=== PATIENT | female | born 1940 | race Caucasian/White ===

== ENCOUNTER 2023-10-17 10:25 | Observation (INO) ==
[2023-10-17 11:29] LABS: Basophils % (auto) 1.1 %; Eosinophils # (auto) 0.81 K/uL (0.00-0.50); Eosinophils % (auto) 8.7 %; Hematocrit (blood only) 38.3 % (37.0-47.0); Hemoglobin 13.5 g/dl (12.0-16.0); Immature Granulocytes # (auto) 0.04 K/uL (0.01-0.20); Immature Granulocytes % (auto) 0.4 %; Lymphocytes # (auto) 3.15 K/uL (1.20-3.40); Lymphocytes % (auto) 33.9 %; Mean Corpuscular Hemoglobin 32.5 pg (25.0-34.0); Mean Corpuscular Hgb Conc 35.2 g/dL (32.0-36.0); Mean Corpuscular Volume 92.1 fL (80.0-100.0); Mean Platelet Volume 9.8 fL (9.4-12.4); Monocytes # (auto) 0.92 K/uL (0.11-0.59); Monocytes % (auto) 9.9 %; Neutrophils # (auto) 4.26 K/uL (1.40-6.50); Platelet Count 336 K/uL (130-400); RDW Coefficient of Variation 13.1 % (11.5-14.5); RDW Standard Deviation 44.3 fL (36.4-46.3); Red Blood Count 4.16 M/uL (4.20-5.40); White Blood Count 9.28 K/ul (4.8-10.8)
[2023-10-17 11:42] LABS: Albumin Globulin Ratio 1.9 (0.9-2); Albumin Level 4.2 gm/dl (3.4-5.0); BUN Creatinine Ratio 17.1 (10-20); Bilirubin,Total 0.4 mg/dl (0.2-1.0); Calcium 9.8 mg/dl (8.6-10.3); Creatinine Clr Calc Pharmacy 58.8 ml/min; Est GFR (African American) 84.7 ml/min; Est GFR (Non-African American) 73.1 ml/min; Globulin 2.2 gm/dl (2.5-4.0); Potassium 4.3 mmol/L (3.5-5.1); Total Protein 6.4 gm/dl (6.0-8.3)
--- NOTE | 2023-10-17 11:51 | Emergency Department Note ---
Impression & Plan Right leg weakness, Hypertension ED Provider Note NAME: SHAMIKA CASTILLO AGE: 82 SEX: F : 1940 ARRIVES VIA: Walk-In INFORMANT: Patient, ED PROVIDER(S): Jordan Stringer MD CHIEF COMPLAINT: Weakness and numbness in the right leg MEDICAL DECISION MAKING: Patient presents due to concern for weakness and numbness in the right lower extremity. IV was established and blood work was obtained. CT head angiography head and neck and CT lumbar spine ordered. Patient's blood work shows a normal white count normal H&H and platelet count. The patient's kidney function is unremarkable with normal electrolytes. After further discussion with the patient the patient would like to consider going home and while the patient certainly may have a lumbar etiology of the numbness and weakness the patient is at an age where a stroke is also a possibility. Patient's initial CT head is negative but does show microvascular ischemic changes. Chest x-ray negative. 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 Given moderate stenosis believe this to be less likely to cause symptoms. I did speak the on-call hospital service ALEXA Snyder. After further discussion plan will be to admit the patient. Discussion w/ other healthcare providers: ALEXA Snyder and Dr. Telles Prior /Outside records reviewed: I reviewed an operative report from July 17, [address] Pineda. The patient had been seen for right cataracts. Differential diagnosis: Infection, dehydration, metabolic abnormality, hypo/hyperglycemia, electrolyte imbalance, anemia, UTI, pneumonia, thyroid dysfunction among others were considered. Diagnostics, as interpreted by me: ECG: Normal sinus rhythm, rate of 60, normal intervals, normal axis no ST elevations, Q-wave in lead III T wave version in V2. No significant change for comparison September 19, 2018 Cardiac monitoring: An order was placed for continuous cardiac monitoring. The monitor shows a rate of 62 with sinus rhythm. Patient was placed on pulse oximetry Medical decision rules: None Imaging studies: I informally interpreted the patient's CT head which does not show obvious ICH with formal report to follow. I informally interpreted the patient's femur x-ray which does not show obvious fracture or dislocation with formal report to follow. I informally reviewed the patient's chest x-ray which does not show obvious pneumonia or pneumothorax with formal report to follow. HPI: Patient presents due to concern for weakness and numbness of the right leg. The patient states that she had gotten in her car and had noticed some tingling in the back of her bilateral legs. The patient states that she is she was driving to [place] the patient could not feel her right lower extremity. The patient felt as though it was weak as well. The patient got out of her car and was able to bear weight on the leg. Patient states that she checked out this lasted no more than 10 minutes to where she regained feeling. The patient states that at rest she does not seem to have any symptoms but if she were to get up and walk she feels as though it may worsen. Patient denies any prior history of stroke or mini stroke. The patient has had chronic back pain although not acutely worse. PAST MEDICAL HISTORY: See Below PAST SURGICAL HISTORY: See Below SOCIAL HISTORY: See Below HOME MEDICATIONS: See Below ALLERGIES: See Below VITALS: See Below PHYSICAL EXAMINATION: GENERAL: NAD, non-toxic. EYE EXAM: Normal conjunctiva. PERRL, no anisocoria and EOM's grossly intact w/o pain. OROPHARYNX: Moist mucus membranes, grossly normal dentition. NECK: Trachea midline, no stridor. Supple, no nuchal rigidity, no adenopathy, non-tender. No signs of meningismus. FROM of the neck with good chin to chest and neck extension. LUNGS: Clear to auscultation. Normal chest wall mechanics. HEART: NSR, no MRG. ABDOMEN: Abdomen soft, non-tender, no masses, no rebound or guarding. BACK: No CVA TTP. SKIN: No rashes and no bruising. UPPER EXTREMITIES: Upper extremities are grossly normal. LOWER EXTREMITIES: Grossly normal, no edema. NEURO EXAM: A&O x3, cranial nerves II-XII grossly intact, normal speech, moves all 4 extremities. 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 Hypertension Surgical History Hx of left cataract extraction History of colonoscopy History of appendectomy Family History Father Stroke Mother Cancer Social History Smoking Status: Former smoker Tobacco Type: Cigarettes Cigarettes Per Day: 3; Second Hand Exposure: No; Do You Dip or Chew Tobacco: No; Tobacco Cessation Education Requested by Patient: No Hx Alcohol Use: No Hx Substance Use: No Preferred Language: Peruvian Communication Ability: Effective Dispensary Technician Required: No Beliefs That Will Affect Care: None Current Living Situation: Alone Current Living Situation Comment: apartment Other Information That Helps Us Care for You: No Feels Safe at Home: Yes Safety Concerns: Feels Safe At This Time Assistive Devices: None Allergies Allergies Allergy/AdvReac Type Severity Reaction Status Date / Time Sulfa (Sulfonamide Allergy Unknown Rash Verified 07/17/23 10:02 Antibiotics) sulfamethoxazole Allergy Unknown Rash Verified 07/17/23 10:02 [From Bactrim] trimethoprim [From Bactrim] Allergy Unknown Rash Verified 07/17/23 10:02 Home Meds Home Medications Medication Instructions Recorded Confirmed atenolol 50 mg tablet 50 mg PO QAM 09/19/18 10/17/23 triamterene 37.5 1 tab PO QAM 09/19/18 10/17/23 mg-hydrochlorothiazide 25 mg capsule umeclidinium 62.5 mcg-vilanterol 1 puffs inhalation QAM 06/16/19 10/17/23 25 mcg/actuation powdr for inhalation (Anoro Ellipta) albuterol sulfate 90 mcg/actuation 1 puffs inhalation Q6H PRN 09/16/22 10/17/23 aerosol inhaler shortness of breath or wheezing varenicline 0.5 mg (11)-1 mg (42) 1 ea PO UD 10/17/23 10/17/23 tablets in a dose pack Previous Rx's Medication Instructions Recorded inhalational spacing device #1 ea 06/16/19 (Aerochamber Mini) montelukast 10 mg tablet 10 mg PO QPM #90 tabs 06/07/20 Results & Data (ED) Vital Signs Vital Signs - 24 hr 10/17/23 10:36 10/17/23 12:29 Temperature 36.8 C Temperature Source Oral Pulse Rate 63 61 Respiratory Rate 18 Blood Pressure 161/122 H Blood Pressure Mean 135 Blood Pressure Position Sitting Pulse Oximetry 98 Sepsis Recent Fever Within 48 Hours No Sepsis New/Unexplained Change in Mental Status No Sepsis Action Taken by Nursing No Action Required Home Medications Current Medication List: was personally reviewed by me Laboratory Data Attestation: I reviewed the patient's lab results. 10/18/23 06:37 10/18/23 06:37 Lab Results 10/17/23 Range/Units 11:11 WBC 9.28 (4.8-10.8) K/ul RBC 4.16 L (4.20-5.40) M/uL Hgb 13.5 (12.0-16.0) g/dl Hct 38.3 (37.0-47.0) % MCV 92.1 (80.0-100.0) fL MCH 32.5 (25.0-34.0) pg MCHC 35.2 (32.0-36.0) g/dL RDW Std Deviation 44.3 (36.4-46.3) fL RDW Coeff of Renaldo 13.1 (11.5-14.5) % Plt Count 336 (130-400) K/uL MPV 9.8 (9.4-12.4) fL Immature Gran % (Auto) 0.4 % Neut % (Auto) 46.0 % Lymph % (Auto) 33.9 % [place] % (Auto) 9.9 % Eos % (Auto) 8.7 % Baso % (Auto) 1.1 % Neut # (Auto) 4.26 (1.40-6.50) K/uL Lymph # (Auto) 3.15 (1.20-3.40) K/uL Willacy # (Auto) 0.92 H (0.11-0.59) K/uL Eos # (Auto) 0.81 H (0.00-0.50) K/uL Baso # (Auto) 0.10 (0.00-0.20) K/uL Immature Gran # (Auto) 0.04 (0.01-0.20) K/uL PT 10.4 (9.0-12.0) Seconds INR 0.9 (0.9-1.1) APTT 24 (21-31) Seconds PTT Ratio 0.9 Sodium 133 L (136-145) mmol/L Potassium 4.3 (3.5-5.1) mmol/L Chloride 98 (98-107) mmol/L Carbon Dioxide 29 (21-32) mmol/L Anion Gap 6 (3-11) BUN 13 (6-23) mg/dl Creatinine 0.76 (0.6-1.2) mg/dl Est Cr Clr Drug Dosing 58.8 ml/min Est GFR ( Amer) 84.7 ml/min Est GFR (Non-Af Amer) 73.1 ml/min BUN/Creatinine Ratio 17.1 (10-20) Glucose 91 (70-99(Fasting)) mg/dl Calcium 9.8 (8.6-10.3) mg/dl Total Bilirubin 0.4 (0.2-1.0) mg/dl AST 12 L (13-39) U/L ALT 11 (7-52) U/L Alkaline Phosphatase 59 (34-104) U/L Total Protein 6.4 (6.0-8.3) gm/dl Albumin 4.2 (3.4-5.0) gm/dl Globulin 2.2 L (2.5-4.0) gm/dl Albumin/Globulin Ratio 1.9 (0.9-2) Administered Medications Discontinued Medications Atenolol (Atenolol 50 Mg Tablet) [facility] [place] Stop: 11/17/23 08:59 Last Admin: 10/18/23 08:37 Dose: 50 mg Documented By: LORENA Ioversol (Optiray 320 125ml) 116 ml IV ONCE ONE Stop: 10/17/23 12:43 Last Admin: 10/17/23 12:43 Dose: 116 ml Documented By: BRIAN Labetalol HCl (Labetalol Hcl Iv 5 Mg/Ml 20ml) 10 mg IV Q4H PRN PRN Reason: Hypertension Stop: 11/16/23 21:56 Last Admin: 10/18/23 00:49 Dose: 10 mg Documented By: DILEEP Co-signed By: LIZY Montelukast Sodium (Montelukast Sodium 10 Mg Tablet) 10 mg PO QPM [facility] Stop: 11/16/23 20:59 Last Admin: 10/17/23 22:09 Dose: 10 mg Documented By: SOHAM Triamterene/Hydrochlorothiazide (Triamterene/Hctz 37.5/25mg Cap) 1 cap PO QAM [facility] Stop: 11/17/23 08:59 Last Admin: 10/18/23 08:37 Dose: 1 cap Documented By: LORENA Umeclidinium/Vilanterol (Umeclidinium/Vilanterol 62.5/25mcg 7 Puffs/Inhaler) 1 puffs INH QAM [facility] Stop: 11/17/23 08:59 Last Admin: 10/18/23 08:36 Dose: 1 puffs Documented By: LORENA Zolpidem Tartrate (Zolpidem Tartrate 5 Mg Tab) 5 mg PO HS PRN PRN Reason: Sleep Stop: 11/16/23 23:09 Last Admin: 10/18/23 00:54 Dose: 5 mg Documented By: [facility] [place] Data Radiologist's Impression: Chest X-Ray 10/17/23 10:38 XR chest 1V portable HISTORY: leg weakness COMPARISON: Chest 09/19/2018. FINDINGS: The lungs are clear. Cardiac silhouette is top normal in size. No pleural effusions. No pneumothorax. IMPRESSION: No acute process. ACT 112: Negative or not required by law. Electronically signed by: Shade Gibbs M.D. 10/17/2023 12:[address] 10/17/23 12:[address] DOSE: HISTORY: leg weakness/numbness TECHNIQUE: Multiaxial CT images of the head were performed without the use of intravenous contrast. Automated exposure control was utilized for this study. A dose lowering technique was utilized adhering to the principles of ALARA. Comparison: None. Findings: The paranasal sinuses and mastoid air cells are clear. The calvarium and skull base are intact. There is no mass, hematoma, midline shift, acute infarct. White matter hypodensity is nonspecific but suggestive of microvascular ischemic change. The ventricles and sulci demonstrate mild age-related involutional changes. Impression: No acute intracranial abnormality. Atrophy and microvascular ischemic changes. ACT 112: Negative or not required by law. Electronically signed by: Shade Gibbs M.D. 10/17/2023 12:48 PM Head CTA 10/17/23 12:12 HEAD & NECK CTA HISTORY: Right lower extremity weakness/numbness TECHNIQUE: Multiaxial CT images of the head were performed following the intravenous administration of contrast to evaluate the major cerebral vessels. Multiaxial CT images of the neck were also performed following the intravenous administration of contrast to evaluate the major cervical vessels. 3D/MIP images were also obtained. Sagittal and coronal reformats were reviewed. A dose lowering technique was utilized adhering to the principles of ALARA. COMPARISON: None. FINDINGS: There is no mass, hematoma, midline shift, or acute infarct. Visualized intracranial internal carotid arteries, distal right vertebral artery, and basilar artery are widely patent. There is no significant stenosis, occlusion, or aneurysm seen within the bilateral ACAs, MCAs, or teacher education director. Focal mild to moderate stenosis within the distal left vertebral artery on image 30. There is a persistent right posterior circulation. Mild calcified plaque within the bilateral carotid siphons. There is a hypoplastic right A2 segment which is likely developmental.. The major dural venous sinuses are patent. The aortic arch and proximal great vessels are widely patent. There is no significant stenosis, occlusion, or dissection identified within the bilateral common carotid, internal carotid, or vertebral arteries. Scattered peripheral micronodules seen within the upper lobes measuring up to 3 mm. These are indeterminate but favor mild inflammatory/infectious change. A 1 cm left thyroid nodule. This does not meet CT criteria for follow-up. Mild calcified plaque within the bilateral carotid bifurcations. IMPRESSION: 1. No significant stenosis, occlusion, or aneurysm within the [place] of Silva. 2. No significant stenosis, occlusion, or dissection identified within the carotid or cervical vertebral arteries. 3. 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 ACT 112: Negative or not required by law. Electronically signed by: Shade Gibbs M.D. 10/17/2023 12:56 PM Neck CTA 10/17/23 12:12 HEAD & NECK CTA HISTORY: Right lower extremity weakness/numbness TECHNIQUE: Multiaxial CT images of the head were performed following the intravenous administration of contrast to evaluate the major cerebral vessels. Multiaxial CT images of the neck were also performed following the intravenous administration of contrast to evaluate the major cervical vessels. 3D/MIP images were also obtained. Sagittal and coronal reformats were reviewed. A dose lowering technique was utilized adhering to the principles of ALARA. COMPARISON: None. FINDINGS: There is no mass, hematoma, midline shift, or acute infarct. Visualized intracranial internal carotid arteries, distal right vertebral artery, and basilar artery are widely patent. There is no significant stenosis, occlusion, or aneurysm seen within the bilateral ACAs, MCAs, or teacher education director. Focal mild to moderate stenosis within the distal left vertebral artery on image 30. There is a persistent right posterior circulation. Mild calcified plaque within the bilateral carotid siphons. There is a hypoplastic right A2 segment which is likely developmental.. The major dural venous sinuses are patent. The aortic arch and proximal great vessels are widely patent. There is no significant stenosis, occlusion, or dissection identified within the bilateral common carotid, internal carotid, or vertebral arteries. Scattered peripheral micronodules seen within the upper lobes measuring up to 3 mm. These are indeterminate but favor mild inflammatory/infectious change. A 1 cm left thyroid nodule. This does not meet CT criteria for follow-up. Mild calcified plaque within the bilateral carotid bifurcations. IMPRESSION: 1. No significant stenosis, occlusion, or aneurysm within the agdaagux of Silva. 2. No significant stenosis, occlusion, or dissection identified within the carotid or cervical vertebral arteries. 3. 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 ACT 112: Negative or not required by law. Electronically signed by: Shade Gibbs M.D. 10/17/2023 12:56 PM Discharge Plan Visit Data Chief Complaint: Leg Injury/Pain Stated Complaint: PAIN IN RIGHT LEG, NUMBNESS ED Provider: Jordan Stringer Discharge Problem: Right leg weakness, Hypertension Patient Disposition: Admitted As Inpatient Condition: Good Discharge Instructions Interventions: ED Discharge Assessment Last Done: 10/17/23 19:25 Discharge Problem: Hypertension Qualifiers: Hypertension type: unspecified Qualified Code(s): I10 - Essential (primary) hypertension
[2023-10-17 11:53] LABS: INR 0.9 (0.9-1.1); Partial Thromboplastin Ratio 0.9; Partial Thromboplastin Time 24 Seconds (21-31); Prothrombin Time 10.4 Seconds (9.0-12.0)
--- NOTE | 2023-10-17 12:26 | XRay Report ---
XR chest 1V portable HISTORY: leg weakness COMPARISON: Chest 09/19/2018. FINDINGS: The lungs are clear. Cardiac silhouette is top normal in size. No pleural effusions. No pne umothorax. IMPRESSION: No acute process. ACT 112: Negative or not required by law. Electronically signed by: Shade Gibbs M.D. 10/17/2023 12:25 PM
[2023-10-17] MEDS ORDERED: OPTIRAY 320 125ml IV ONE (12:42)
--- NOTE | 2023-10-17 12:51 | CT Scan Report ---
HEAD CT NONCONTRAST CT DOSE: HISTORY: leg weakness/numbness TECHNIQUE: Multiaxial CT images of the head were performed without the use of intravenous contrast. A utomated exposure control was utilized for this study. A dose lowering technique was utilized adheri ng to the principles of ALARA. Comparison: None. Findings: The paranasal sinuses and mastoid air cells are clear. The calvarium and skull base are int act. There is no mass, hematoma, midline shift, acute infarct. White matter hypodensity is nonspecifi c but suggestive of microvascular ischemic change. The ventricles and sulci demonstrate mild age-rela gabriella involutional changes. Impression: No acute intracranial abnormality. Atrophy and microvascular ischemic changes. ACT 112: Negative or not required by law. Electronically signed by: Shade Gibbs M.D. 10/17/2023 12:48 PM
--- NOTE | 2023-10-17 12:58 | CT Scan Report ---
HEAD & NECK CTA HISTORY: Right lower extremity weakness/numbness TECHNIQUE: Multiaxial CT images of the head were performed following the intravenous administration o f contrast to evaluate the major cerebral vessels. Multiaxial CT images of the neck were also perform ed following the intravenous administration of contrast to evaluate the major cervical vessels. 3D/NM P images were also obtained. Sagittal and coronal reformats were reviewed. A dose lowering technique was utilized adhering to the principles of ALARA. COMPARISON: None. FINDINGS: There is no mass, hematoma, midline shift, or acute infarct. Visualized intracranial internal carotid arteries, distal right vertebral artery, and basilar artery are widely patent. There is no significa nt stenosis, occlusion, or aneurysm seen within the bilateral ACAs, MCAs, or babysitter. Focal mild to mode rate stenosis within the distal left vertebral artery on image 30. There is a persistent right resaw carriage operator ior circulation. Mild calcified plaque within the bilateral carotid siphons. There is a hypopla stic right A2 segment which is likely developmental.. The major dural venous sinuses are patent. The aortic arch and proximal great vessels are widely patent. There is no significant stenosis, occ lusion, or dissection identified within the bilateral common carotid, internal carotid, or vertebral arteries. Scattered peripheral micronodules seen within the upper lobes measuring up to 3 mm. These a re indeterminate but favor mild inflammatory/infectious change. A 1 cm left thyroid nodule. This does not meet CT criteria for follow-up. Mild calcified plaque within the bilateral carotid bifurcations. IMPRESSION: 1. No significant stenosis, occlusion, or aneurysm within the [place] of Silva. 2. No significant stenosis, occlusion, or dissection identified within the carotid or cervical verteb ral arteries. 3. 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 ACT 112: Negative or not required by law. Electronically signed by: Shade Gibbs M.D. 10/17/2023 12:56 PM
--- NOTE | 2023-10-17 12:58 | CT Scan Report ---
HEAD & NECK CTA HISTORY: Right lower extremity weakness/numbness TECHNIQUE: Multiaxial CT images of the head were performed following the intravenous administration o f contrast to evaluate the major cerebral vessels. Multiaxial CT images of the neck were also perform ed following the intravenous administration of contrast to evaluate the major cervical vessels. 3D/UT P images were also obtained. Sagittal and coronal reformats were reviewed. A dose lowering technique was utilized adhering to the principles of ALARA. COMPARISON: None. FINDINGS: There is no mass, hematoma, midline shift, or acute infarct. Visualized intracranial internal carotid arteries, distal right vertebral artery, and basilar artery are widely patent. There is no significa nt stenosis, occlusion, or aneurysm seen within the bilateral ACAs, MCAs, or mottler machine feeder. Focal mild to mode rate stenosis within the distal left vertebral artery on image 30. There is a persistent right weekend caregiver ior circulation. Mild calcified plaque within the bilateral carotid siphons. There is a hypopla stic right A2 segment which is likely developmental.. The major dural venous sinuses are patent. The aortic arch and proximal great vessels are widely patent. There is no significant stenosis, occ lusion, or dissection identified within the bilateral common carotid, internal carotid, or vertebral arteries. Scattered peripheral micronodules seen within the upper lobes measuring up to 3 mm. These a re indeterminate but favor mild inflammatory/infectious change. A 1 cm left thyroid nodule. This does not meet CT criteria for follow-up. Mild calcified plaque within the bilateral carotid bifurcations. IMPRESSION: 1. No significant stenosis, occlusion, or aneurysm within the [place] of Silva. 2. No significant stenosis, occlusion, or dissection identified within the carotid or cervical verteb ral arteries. 3. 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 ACT 112: Negative or not required by law. Electronically signed by: Shade Gibbs M.D. 10/17/2023 12:56 PM
--- NOTE | 2023-10-17 13:35 | CT Scan Report ---
CT SCAN OF THE LUMBAR SPINE WITHOUT IV CONTRAST CLINICAL HISTORY: Lower extremity weakness and numbness. COMPARISON STUDY: No priors. TECHNIQUE: CT scan of the lumbar spine was performed from the lower thoracic spine to the sacrum. Ni ges are reviewed in the axial, sagittal, and coronal planes. IV contrast was not administered for thi s examination. A dose lowering technique was utilized adhering to the principles of ALARA. FINDINGS: The skeletal structures are osteopenic. There is no evidence of fracture or malalignment in volving the lumbar spine. Vertebral body height and alignment are maintained. Anterior and lateral ma rginal osteophytes are seen throughout. The transverse and spinous processes appear intact. There is no spondylolysis. No lytic or blastic lesion is seen. There is mlat-gx-liojbtxs disc space narrowing at all lumbar levels, greatest at L4-L5. There is significant endplate sclerosis at L3-L4, L4-L5, and L5-S1. Posterior disc osteophyte complexes are seen at all lumbar levels. There is mild to moderate central canal stenosis at L4-L5. Mild central canal stenosis is seen at L5-S1. There is a left latera l disc extrusion at L4-L5 which contributes to subarticular stenosis and impinges on the exiting left L4 nerve root. Large lateral disc bulges are seen bilaterally at L5-S1, left greater than right. Thi s may impinge on the exiting left L5 nerve root. Facet arthropathy is noted in the lower lumbar regio n. The visualized sacrum and bony pelvis appear intact. The paraspinous soft tissues are within shahzad l limits. There is advanced atherosclerotic calcification of the abdominal aorta which is normal in c aliber. No retroperitoneal lymphadenopathy is identified. IMPRESSION: 1. No acute bony abnormality is seen involving the lumbar spine. 2. Spondylotic change as above. ACT 112: Negative or not required by law. Dictated: 10/17/2023 1:16 PM Transcribed: 10/17/2023 1:30 PM King [id number] ELIEZER_Ariel [id number] Electronically signed by: Vitaliy Rai M.D. 10/17/2023 1:33 PM
--- NOTE | 2023-10-17 15:15 | Electrocardiogram Report ---
Test Reason : Blood Pressure : / mmHG Vent. Rate : 060 BPM Atrial Rate : 060 BPM P-R Int : 186 ms QRS Dur : 082 ms QT Int : 468 ms P-R-T Axes : 046 -03 076 degrees QTc Int : 468 ms Normal sinus rhythm Low voltage QRS Inferior infarct , age undetermined Poor R wave progression, consider anterior TX vs. lead placement vs. LVH Abnormal ECG When compared with ECG of 19-SEP-2018 12:31, No significant change was found Confirmed by Christopher Simon ([id number]) on 10/17/2023 3:15:22 PM Referred By: Confirmed By:Christopher Simon
--- NOTE | 2023-10-17 15:42 | History & Physical Report ---
Date of Service October 17, 2023 Assessment & Plan (1) Right leg weakness: Plan: Admit to telemetry Patient presenting from home with reports of right leg weakness, numbness. Over the past 2 weeks, patient reports numbness and tingling going down the backs of both of her legs and also right hip pain while walking up an incline. Today while driving, patient had an episode of right leg weakness and numbness that lasted for about 10 minutes and self resolved. In the ED, head CT unremarkable, head/neck CTA shows Mild to moderate focal stenosis within the distal left intracranial vertebral artery. Suspect symptoms are due to lumbar radiculopathy however will observe and obtain brain MRI Chronic appearing lumbar spine disease noted on lumbar spine CT, will obtain lumbar spine MRI for follow-up Consider echo and addition of ASA and statin pending brain MRI results (2) Hypertension: Plan: BP elevated, likely situational Will monitor for now until brain MRI results Continue home dose atenolol and triamterene/HCTZ (3) History of tobacco use: Plan: Started Chantix about 2 weeks ago and has been tobacco free (4) Asthma-COPD overlap syndrome: Plan: Chronic, stable, no signs of acute exacerbation Continue home inhalers DVT PROPHYLAXIS SCDs for now Patient seen in collaboration with Dr. Telles. I spent a total of 75 minutes coordinating, documenting, and providing care for this patient excluding time spent in the performance of separately billed services. This included personally reviewing all current laboratories and imaging studies, medication reconciliation, outpatient chart review, and discussion with specialists. History of Present Illness Chief Complaint: Right leg weakness Primary Care Provider: Temitope Smyth PA-C 82-year-old female with PMH COPD, asthma, HTN, tobacco abuse, and other problems listed below who presents to the ED for evaluation of right leg weakness. History is obtained from the patient and review of outpatient PCP records. Patient reports that over the past couple weeks, she has noted tingling down the back of both of her legs. She also reports right hip pain with walking up an incline. Today while driving, patient reports her entire right leg went numb and she was unable to move it. Patient reports she pulled over to the side of the road and was able to shake her leg. She reports that feeling returned about 10 minutes. Patient denies bowel and bladder dysfunction. Denies specific back pain. No recent injuries. She denies any other unilateral weakness, numbness, tingling. No facial droop or difficulty speaking. Denies headache and blurred vision. No chest pain or shortness of breath. Denies lightheadedness, dizziness, diaphoresis, syncopal events. No abdominal pain, nausea, vomiting, diarrhea. Denies urinary symptoms. In the ED, labs are unremarkable. Patient is mildly hypertensive. Head CT negative for acute findings. Head/neck CTA shows mild to moderate focal stenosis within the distal left intracranial vertebral artery. Allergies Allergy/AdvReac Type Severity Reaction Status Date / Time Sulfa (Sulfonamide Allergy Unknown Rash Verified 07/17/23 10:02 Antibiotics) sulfamethoxazole Allergy Unknown Rash Verified 07/17/23 10:02 [From Bactrim] trimethoprim [From Bactrim] Allergy Unknown Rash Verified 07/17/23 10:02 Home Medications Medication Instructions Recorded Confirmed Type atenolol 50 mg tablet 50 mg PO QAM 09/19/18 10/17/23 History triamterene 37.5 1 tab PO QAM 09/19/18 10/17/23 History mg-hydrochlorothiazide 25 mg capsule inhalational spacing device #1 ea 06/16/19 10/17/23 Rx (Aerochamber Mini) umeclidinium 62.5 mcg-vilanterol 1 puffs inhalation QAM 06/16/19 10/17/23 History 25 mcg/actuation powdr for inhalation (Anoro Ellipta) montelukast 10 mg tablet 10 mg PO QPM #90 tabs 06/07/20 10/17/23 Rx albuterol sulfate 90 mcg/actuation 1 puffs inhalation Q6H PRN 09/16/22 10/17/23 History aerosol inhaler shortness of breath or wheezing varenicline 0.5 mg (11)-1 mg (42) 1 ea PO UD 10/17/23 10/17/23 History tablets in a dose pack Past Med/Surg History Medical History History of tobacco use 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 Hypertension Surgical History Hx of left cataract extraction History of colonoscopy History of appendectomy Family History Father Stroke Mother Cancer Social History Smoking Status: Never smoker Tobacco Type: Cigarettes Cigarettes Per Day: 3; Second Hand Exposure: No; Do You Dip or Chew Tobacco: No; Hx Alcohol Use: Yes Alcohol type: beer Hx Substance Use: No Preferred Language: Indonesian Communication Ability: Effective Security Support Analyst Required: No Beliefs That Will Affect Care: None Current Living Situation: Alone Feels Safe at Home: Yes Assistive Devices: Denture - Upper, Denture - Lower and Glasses Physical Exam Constitutional: WD/WN, vitals as above no acute distress Eyes: PERRL, conjunctivae normal, anicteric sclerae ENMT: external ear and nose normal, oropharynx normal Respiratory: normal respiratory effort, lungs clear to auscultation Cardiovascular: Rate/Rhythm: regular rate and regular rhythm Vessels: normal peripheral pulses Extremities: no edema Gastrointestinal (Abdomen): normal bowel sounds, soft, nontender, no hepatosp lenomegaly Musculoskeletal: no cyanosis or clubbing, extremities motor strength 5/5 Skin: no rashes, warm and dry Neurologic: PERRL, EOMI, accommodation nl, no face palsy, no dysarthria moves all extremities; no focal motor deficits Psychiatric: A+Ox3, euthymic affect Results & Data Results & Data Vital Signs (Past 12 Hours) Vital Signs Temp Pulse Resp BP Pulse Ox 10/17/23 14:37 192/81 H 10/17/23 14:37 59 L 22 97 10/17/23 14:30 62 18 98 10/17/23 14:00 58 L 23 99 10/17/23 13:30 60 20 97 10/17/23 13:00 94 H 15 94 10/17/23 12:46 93 H 58 H 10/17/23 12:29 61 10/17/23 12:24 59 L 15 97 10/17/23 10:36 36.8 C 63 18 161/122 H 98 Laboratory Results Short CBC 10/17/23 Range/Units 11:11 WBC 9.28 (4.8-10.8) K/ul Hgb 13.5 (12.0-16.0) g/dl Hct 38.3 (37.0-47.0) % Plt Count 336 (130-400) K/uL BMP 10/17/23 11:11 Sodium 133 L Potassium 4.3 Chloride 98 Carbon Dioxide 29 BUN 13 Creatinine 0.76 Glucose 91 Calcium 9.8 Liver Function 10/17/23 Range/Units 11:11 Total Bilirubin 0.4 (0.2-1.0) mg/dl AST 12 L (13-39) U/L ALT 11 (7-52) U/L Alkaline Phosphatase 59 (34-104) U/L Albumin 4.2 (3.4-5.0) gm/dl Diagnostic Findings Chest X-Ray 10/17/23 10:38 XR chest 1V portable HISTORY: leg weakness COMPARISON: Chest 09/19/2018. FINDINGS: The lungs are clear. Cardiac silhouette is top normal in size. No pleural effusions. No pneumothorax. IMPRESSION: No acute process. ACT 112: Negative or not required by law. Electronically signed by: Shade Gibbs M.D. 10/17/2023 12:[address] 10/17/23 12:[address] DOSE: HISTORY: leg weakness/numbness TECHNIQUE: Multiaxial CT images of the head were performed without the use of intravenous contrast. Automated exposure control was utilized for this study. A dose lowering technique was utilized adhering to the principles of ALARA. Comparison: None. Findings: The paranasal sinuses and mastoid air cells are clear. The calvarium and skull base are intact. There is no mass, hematoma, midline shift, acute infarct. White matter hypodensity is nonspecific but suggestive of microvascular ischemic change. The ventricles and sulci demonstrate mild age-related involutional changes. Impression: No acute intracranial abnormality. Atrophy and microvascular ischemic changes. ACT 112: Negative or not required by law. Electronically signed by: Shade Gibbs M.D. 10/17/2023 12:[address] 10/17/23 12:11 CT SCAN OF THE LUMBAR SPINE WITHOUT IV CONTRAST CLINICAL HISTORY: Lower extremity weakness and numbness. COMPARISON STUDY: No priors. TECHNIQUE: CT scan of the lumbar spine was performed from the lower thoracic spine to the sacrum. Images are reviewed in the axial, sagittal, and coronal planes. IV contrast was not administered for this examination. A dose lowering technique was utilized adhering to the principles of ALARA. FINDINGS: The skeletal structures are osteopenic. There is no evidence of fract ure or malalignment involving the lumbar spine. Vertebral body height and alignment are maintained. Anterior and lateral marginal osteophytes are seen throughout. The transverse and spinous processes appear intact. There is no spondylolysis. No lytic or blastic lesion is seen. There is aynl-jk-jwvhqeqz disc space narrowing at all lumbar levels, greatest at L4-L5. There is significant endplate sclerosis at L3-L4, L4-L5, and L5-S1. Posterior disc osteophyte complexes are seen at all lumbar levels. There is mild to moderate central canal stenosis at L4-L5. Mild central canal stenosis is seen at L5-S1. There is a left lateral disc extrusion at L4-L5 which contributes to subarticular stenosis and impinges on the exiting left L4 nerve root. Large lateral disc bulges are seen bilaterally at L5-S1, left greater than right. This may impinge on the exiting left L5 nerve root. Facet arthropathy is noted in the lower lumbar region. The visualized sacrum and bony pelvis appear intact. The paraspinous soft tissues are within normal limits. There is advanced atherosclerotic calcification of the abdominal aorta which is normal in caliber. No retroperitoneal lymphadenopathy is identified. IMPRESSION: 1. No acute bony abnormality is seen involving the lumbar spine. 2. Spondylotic change as above. ACT 112: Negative or not required by law. Dictated: 10/17/2023 1:16 PM Transcribed: 10/17/2023 1:30 PM King [id number] ELIEZER_Ariel [id number] Electronically signed by: Vitaliy Rai M.D. 10/17/2023 1:33 PM Head CTA 10/17/23 12:12 HEAD & NECK CTA HISTORY: Right lower extremity weakness/numbness TECHNIQUE: Multiaxial CT images of the head were performed following the intravenous administration of contrast to evaluate the major cerebral vessels. Multiaxial CT images of the neck were also performed following the intravenous administration of contrast to evaluate the major cervical vessels. 3D/MIP images were also obtained. Sagittal and coronal reformats were reviewed. A dose lowering technique was utilized adhering to the principles of ALARA. COMPARISON: None. FINDINGS: There is no mass, hematoma, midline shift, or acute infarct. Visualized intracranial internal carotid arteries, distal right vertebral artery, and basilar artery are widely patent. There is no significant stenosis, occlusion, or aneurysm seen within the bilateral ACAs, MCAs, or straightening press operator. Focal mild to moderate stenosis within the distal left vertebral artery on image 30. There is a persistent right posterior circulation. Mild calcified plaque within the bilateral carotid siphons. There is a hypoplastic right A2 segment which is likely developmental.. The major dural venous sinuses are patent. The aortic arch and proximal great vessels are widely patent. There is no significant stenosis, occlusion, or dissection identified within the bilateral common carotid, internal carotid, or vertebral arteries. Scattered peripheral micronodules seen within the upper lobes measuring up to 3 mm. These are indeterminate but favor mild inflammatory/infectious change. A 1 cm left thyroid nodule. This does not meet CT criteria for follow-up. Mild calcified plaque within the bilateral carotid bifurcations. IMPRESSION: 1. No significant stenosis, occlusion, or aneurysm within the [place]. 2. No significant stenosis, occlusion, or dissection identified within the carotid or cervical vertebral arteries. 3. 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 ACT 112: Negative or not required by law. Electronically signed by: Shade Gibbs M.D. 10/17/2023 12:56 PM Neck CTA 10/17/23 12:12 HEAD & NECK CTA HISTORY: Right lower extremity weakness/numbness TECHNIQUE: Multiaxial CT images of the head were performed following the intravenous administration of contrast to evaluate the major cerebral vessels. Multiaxial CT images of the neck were also performed following the intravenous administration of contrast to evaluate the major cervical vessels. 3D/MIP images were also obtained. Sagittal and coronal reformats were reviewed. A dose lowering technique was utilized adhering to the principles of ALARA. COMPARISON: None. FINDINGS: There is no mass, hematoma, midline shift, or acute infarct. Visualized intracranial internal carotid arteries, distal right vertebral artery, and basilar artery are widely patent. There is no significant stenosis, occlusion, or aneurysm seen within the bilateral ACAs, MCAs, or straightening press operator. Focal mild to moderate stenosis within the distal left vertebral artery on image 30. There is a persistent right posterior circulation. Mild calcified plaque within the bilateral carotid siphons. There is a hypoplastic right A2 segment which is likely developmental.. The major dural venous sinuses are patent. The aortic arch and proximal great vessels are widely patent. There is no significant stenosis, occlusion, or dissection identified within the bilateral common carotid, internal carotid, or vertebral arteries. Scattered peripheral micronodules seen within the upper lobes measuring up to 3 mm. These are indeter minate but favor mild inflammatory/infectious change. A 1 cm left thyroid nodule. This does not meet CT criteria for follow-up. Mild calcified plaque within the bilateral carotid bifurcations. IMPRESSION: 1. No significant stenosis, occlusion, or aneurysm within the [place]. 2. No significant stenosis, occlusion, or dissection identified within the carotid or cervical vertebral arteries. 3. 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 ACT 112: Negative or not required by law. Electronically signed by: Shade Gibbs M.D. 10/17/2023 12:56 PM Supervising Physician Co-Signing Physician Notes Reviewed REGISTERED RESPIRATORY TECHNICIAN notes, agree with above. Await MRI at this time. Will get PT OT evaluation. Discussed with daughter who is at bedside about plan of care.I spent a total of 25 minutes reviewing notes, outpatient records, labs, medication, coordinating, documenting and providing care for this patient excluding time spent in the performance of separately billed services.
[2023-10-17] MEDS ORDERED: PHARMACIST DISCHARGE MED REC CONSULT PRN (19:26)
[2023-10-17] MEDS ORDERED: ACETAMINOPHEN 325 MG TAB PO PRN (19:26)
--- NOTE | 2023-10-17 19:52 | Magnetic Resonance Report ---
LUMBAR SPINE MRI HISTORY: right leg weakness TECHNIQUE: Multiplanar multisequence MRI of the lumbar spine was performed without the use of contras t. COMPARISON: None. FINDINGS: For the purpose of the report the L5-S1 disc space will be located on axial image 27 of 30. No fracture or subluxation within the lumbar spine. There is mild disc space narrowing at L2-L3, L3-L 4, and L5-S1. There is moderate disc space narrowing at L4-L5. Sdcy-yx-zcwmgxzy facet degenerative ch anges within the lumbar spine most pronounced at the L4-L5 level. Mild paravertebral edema at the L5- S1 level. There is mild endplate edema at L3-L4, L4-5, and L5-S1. There is associated T1 hypointense signal at the inferior endplate of L5. These findings are most likely secondary to the long-standing degenerative change. An early discitis/osteomyelitis at L5-S1 is considered less likely but not entir wilber excluded. No epidural fluid collections identified. The conus terminates at the T12-L1 disc space level. L1-L2: Small broad-based posterior disc bulge without significant central canal or neural foraminal n arrowing. L2-L3: Small broad-based posterior disc bulge with ligamentum and facet hypertrophy resulting in mild central canal narrowing. No significant neural foraminal narrowing. L3-L4: Small broad-based posterior disc bulge with ligamentum and facet hypertrophy resulting in mild central canal and mild bilateral neural foraminal narrowing. L4-L5: Broad-based posterior disc bulge with ligamentum and facet hypertrophy resulting in moderate t o severe central canal narrowing with an AP diameter of 6.5 mm. There is also mild to moderate bilate ral neural foraminal narrowing. There is severe narrowing of the lateral recesses at this level due t o the disc bulge and facet hypertrophy. L5-S1: Broad-based posterior disc bulge with mild ligamentum and facet hypertrophy. This results in m ild central canal and moderate bilateral neural foraminal narrowing. There is severe narrowing of the left lateral recess. IMPRESSION: 1. No fracture or subluxation within the lumbar spine. 2. Multilevel lumbar spondylosis as described above most pronounced at the L4-L5 level which demonstr ates moderate to severe central canal narrowing. 3. Mild paravertebral edema at the L5-S1 level. There is mild endplate edema at L3-L4, L4-5, and L5-S 1. There is associated T1 hypointense signal at the inferior endplate of L5. These findings are most likely secondary to the long-standing degenerative change. An early discitis/osteomyelitis at L5-S1 i s considered less likely but not entirely excluded. ACT 112: Negative or not required by law. Electronically signed by: Shade Gibbs M.D. 10/17/2023 7:50 PM
--- NOTE | 2023-10-17 19:59 | Magnetic Resonance Report ---
Brain MRI WITHOUT CONTRAST HISTORY: right leg weakness TECHNIQUE: Multiplanar multisequence MRI of the brain was performed without the use of contrast. COMPARISON STUDY: Head CT 10/17/2023. FINDINGS: There is no mass, hematoma, midline shift, or acute infarct. The paranasal sinuses are luis r. The mastoid air cells are clear. The ventricles and sulci demonstrate moderate age-related involut ional changes. Scattered foci of T2 hyperintensity seen within the periventricular and subcortical wh ite matter are nonspecific but suggestive of moderate microvascular ischemic changes. The major vascu lar flow voids at the skull base are well-maintained. Prior bilateral lens replacement. IMPRESSION: No acute intracranial abnormality. Scattered foci of T2 hyperintensity seen within the periventricula r and subcortical white matter are nonspecific but favor microvascular ischemic change. ACT 112: Negative or not required by law. Electronically signed by: Shade Gibbs M.D. 10/17/2023 7:56 PM
--- OUTSIDE RECORDS SUMMARY | 2023-10-17 20:33 | External Medical Summary | Summary of Care ---
Author Name Unknown Organization [facility] Address [address] [place] [address] Phone [phone] Care Team Providers Care Sales Associate Cashier Name Role Phone Marilyn RIVAS MD, Asuncion Celeste Primary Care Provider [phone] Reason for Visit * Reason Comments eRx-Medication Refill Encounter Details Date Type Department Care Team (Late st Contact Info) Description 07/10/[address] [facility] [address] [place] [address] Asuncion Schneider III, MD [address] [facility] [place] [address] COPD, severity to be determined (HCC) Allergies Active Allergy Reactions Criticality Noted Date Comments Sulfa Antibiotics 04/03/2013 Generalized uticaria. documented as of this encounter (statuses as of 07/27/2023) Medications Medication Sig Dispensed Refills Start Date End Date Status predniSONE 20 MG Oral Tablet (Deltasone) Take 2 Tablets by mouth in the morning. Rescue kit. 10 Tablet 2 01/10/2023 Active Azithromycin 250 MG Oral Tablet (Zithromax) TAKE 2 TABLETS BY MOUTH TODAY, THEN TAKE 1 TABLET DAILY FOR 4 DAYS 6 Tablet 0 01/10/2023 Active Albuterol Sulfate HFA 108 (90 Base) MCG/ACT Inhalation Aerosol Solution Inhale 2 Puffs by mouth every 6 hours as needed for Shortness of Breath or Wheezing. 18 g 3 01/10/2023 Active Atenolol 50 MG Oral Tablet (Tenormin)Indicati ons:HTN, goal below 140/90 TAKE 1 TABLET BY MOUTH EVERY DAY IN THE MORNING 90 Tablet 1 05/07/2023 Active Triamterene-HCTZ 37.5-25 MG Oral Capsule (Dyazide)Indicatio ns:HTN, goal below 140/90 TAKE 1 CAPSULE BY MOUTH EVERY DAY IN THE MORNING 90 Capsule 1 05/07/2023 Active Anoro Ellipta 62.5-25 MCG/ACT Inhalation Aerosol Powder Breath Activated (umeclidinium-micheline nterol) INHALE 1 PUFF BY MOUTH EVERY DAY 180 Each 3 05/14/2023 Active Montelukast Sodium 10 MG Oral Tablet (Singulair)Indicat ions:Unspecified asthma, uncomplicated TAKE 1 TABLET BY MOUTH EVERY DAY IN THE EVENING 90 Tablet 3 05/29/2023 Active Benzonatate 100 MG Oral Capsule (Tessalon Perles) Take 1 Capsule by mouth 3 times a day as needed for Cough. 30 Capsule 1 06/22/2023 Active Ipratropium-Albute rol 0.5-2.5 (3) MG/3ML Inhalation Solution (Duoneb)Indication s:COPD, severity to be determined (HCC) INHALE 3 ML VIA NEBULIZER 4 TIMES A DAY 360 mL 3 07/11/2023 Active Varenicline Tartrate (Starter) 0.5 MG X 11 & 1 MG X 42 Tablet Therapy Pack As directed 1 Each 0 07/20/2023 Active Ipratropium-Albute rol 0.5-2.5 (3) MG/3ML Inhalation Solution (Duoneb)Indication s:COPD, severity to be determined (HCC) INHALE 3 ML VIA NEBULIZER 4 TIMES A DAY 360 mL 3 11/09/2022 3 Discontinued Hospital, Clinic, or Other Facility Administered Medication Ordered Dose Route Frequency Start Date End Date Status albuterol (PROVENTIL HFA) inhaler 4 PuffIndications:Chronic obstructive pulmonary disease, unspecified COPD type (HCC) 4 Puff IN Q4H PRN 10/04/2018 Active albuterol sulfate (PROVENTIL) (2.5 MG/3ML) 0.083% inhalation solution 2.5 mgIndications:COPD exacerbation (HCC) 2.5 mg NEBULIZER Q4H PRN 05/09/2019 Active documented as of this encounter (statuses as of 07/27/2023) Active Problems Problem Noted Date Diagnosed Date COPD, group C, by GOLD 2017 classification 05/25 Overview: Per COPD GOLD Classification Chronic bronchitis 10/01/2019 Moderate persistent asthma with exacerbation HTN, goal below 140/90 02/21/2007 ADVANCE DIRECTIVE INFORMATION 08/14/2005 Overview: Yes, Patient instructed to provide copy of advance directive for provider to review and to be scanned into Electronic Medical Record documented as of this encounter (statuses as of 07/27/2023) Resolved Problems Problem Noted Date Diagnosed Date Resolved Date Current moderate episode of major depressive disorder without prior episode 03/24/2021 COPD, group B, by GOLD 2017 classification 10/01/2019 05/27/2020 Overview: Per COPD GOLD Classification COPD, group C, by GOLD 2017 classification 06/30/2019 01/29/2020 Overview: Per COPD GOLD Classification COPD, mild 11/18/2018 06/03/2019 COPD exacerbation 09/25/2018 08/28/2019 Overview: acute documented as of this encounter (statuses as of 07/27/2023) Immunizations Name Administration Dates Next Due COVID-19 mRNA, LNP-s, No Pre serve, 2-Dose Series ([facility]) 11/10/2020,10/20/2020 Covid-19, Mrna, Lnp-s, Pf, B ivalent, 30 Mcg, IM, 12 yrs and above ([place]) 06/05/2022 Pneumococcal Conjugate Vacc, 13 Valent (Prevnar) 08/20/2015 Pneumococcal Polysaccharide PPV23 (Pneumovax) 07/16/2006 SEASONAL INFLUENZA, PF, 6 M & Above, IM , (FLULAVAL or FLUZONE) 05/30/2020,05/28/2019,06/13/2018 Seasonal Influenza, Quadriva lent Hd (Fluzone Hd) 05/26/2021 Seasonal Influenza, Quadriva lent, No Preserve, IM 05/24/2017,06/14/2016 Seasonal Influenza, Split, I IV3, With Preserve, Inj 06/09/2014,06/07/2013,06/18/2012,06/13,07/06/2010,07/20/2009 Seasonal Influenza, Trivalen t, High Dose, No Preserve, IM 06/07/2015 TDAP (age 10 and older)(Boostrix) 04/16/2013 Varicella Zoster Vaccine (Adult) 10/14/2008 Zoster Vaccine Recombinant (Shingrix) 05/26/2019 ,03/18/2019 documented as of this encounter Social History Tobacco Use Types Packs/Day Years Used Date Smoking Tobacco: Every Day Cigarettes 0.3 50 Last attempted to quit: 10/17/2018 Smokeless Tobacco: Never Alcohol Use Standard Drinks/Week Comments Yes 0 (1 standard drink = 0.6 oz pur e alcohol) 8 beers per week PHQ-2 Answer Date Recorded PHQ-2 Score 0 07/12/2020 Hunger Vital Sign Answer Date Recorded Worried About Running Out of Food in the Last Ye ar Never true 07/12/2020 Ran Out of Food in the Last Year Never true 07/12/2020 Sex and Gender Information Value Date Recorded Sex Assigned at Not on file Gender Identity Not on file Sexual Orientation Not on file Job Start Date Occupation Industry Not on file Not on file Not on file documented as of this encounter Miscellaneous Notes * Telephone Encounter - Scarlett Curran CPhT - 07/27/2023 8:36 AM EST Pt is calling regarding her Ipratropium-Albuterol 0.5-2.5 (3) MG/3ML Inhalation Solution (Duoneb). PC to pharmacy to find out what they have in stock as an alternative and [facility] stated the only alternative they have right now is the Ipratropium and Albuterol . Please advise Thank you, Zakia Curran Matching Machine Operator I [facility]) 07/27/2023,8:41 AM * Addendum Note - Asuncion Schneider III, MD - 07/20/2023 4:20 PM EDTAddended by: ASUNCION SCHNEIDER on: 07/20/2023 04:20 PM Modules accepted: Orders * Telephone Encounter - Asuncion Schneider III, MD - 07/20/2023 4:18 PM EDT [facility] ? Alternative? * Telephone Encounter - Aishwarya Dias OSA - 07/19/2023 1:15 PM EDT Patient called because [facility] contacted her and they are not carrying this brand anymore and need to speak to PCP for an alternative. Please contact [facility]. * Telephone Encounter - Kristel Gautam RP - 07/11/2023 7:16 AM EDTSigned Prescriptions: Disp Refills Ipratropium-Albuterol 0.5-2.5 (3) MG/3ML I*360 mL 3 Sig: INHALE 3 ML VIA NEBULIZER 4 TIMES A DAYAuthorizing Provider: ASUNCION SCHNEIDER III User: KRISTEL GAUTAMRefmandie Prescriptions: Disp Refills Varenicline Tartrate (Starter) 0.5 MG X 11*1 Each 0 Sig: USE DIRECTED ON THE PACKAGERefused By: KRISTEL GAUTAM for Refusal:Patient Should Contact Provider First documented in this encounter Plan of Treatment Upcoming Encounters Date Type Department Care Team (Late st Contact Info) Description 09/20/2023 7:40 AM EST Office Visit Family [facility] [address] [place] [address] [place], [place] [address] Alie Abel DO [address] [place], [place] [address] Health Maintenance Due Date Last Done Comments DISCUSS TOBACCO CESSATION (REFER TO SMARTSET #329) 1940 Alpha-1 Antitrypsin 1958 *ADVANCE DIRECTIVE NOT ON FILE 05/30/2020 Depression Screening 07/12/2021 07/12/2020 DXA Scan 12/28/2021 12/28/2014 DTaP,Tdap,and Td Vaccines (2 - Td or Tdap) 04/16/2023 04/16/2013 Influenza Vaccine (FLU shot) (#1) 2023 05/26/2021, 05/30/2020, 05/28/2019, Additional history exists GFR 09/12/2023 09/12/2022, 06/17, 03/29/2021, Additional history exists O2 ASSESSMENT COMPLETED IN PAST YEAR FOR COPD 06/22/2024 06/22/2023 Albumin/Creatinine Ratio 03/12/2026 03/12/2023 Pneumococcal Vaccine: 65+ Years Completed 08/20/2015, 07/16/2006 Zoster Vaccines Completed 05/26/2019, 10/2018, 10/14/2008 COLONOSCOPY-EVERY 3 YRS AGES 18-100 Discontinued 04/15/2020, 04/15/2020, 10/19/2016, Additional history exists COVID-19 Vaccine Completed 06/08/2023, , 01/06/2022, Additional history exists GARDASIL-HPV IMMUNIZATION SERIES Aged Out No longer eligible based on patient's age to complete this topic Hepatitis B Aged Out No longer eligi ble based on patient's age to complete this topic MENINGOCOCCAL (MENACTRA/MENVEO) Aged Out No longer eligible based on patient's age to complete this topic documented as of this encounter Medical Devices Not on filedocumented as of this encounter Visit Diagnoses Diagnosis COPD, severity to be determined (HCC) Chronic airway obstruction, not elsewhere classified documented in this encounter Care Teams Sales Associate Cashier Relationship Specialty Start Date End Date Asuncion Schneider III, MD [address] [place], [place] [address] PCP - General Family Medicine 09/25/18 documented as of this encounter
--- OUTSIDE RECORDS SUMMARY | 2023-10-17 20:33 | External Medical Summary | Summary of Care ---
Author Name Unknown Organization [facility] Address [address] [place] [address] Phone [phone] Care Team Providers Care Wood Sash And Frame Carpenter Name Role Phone Marilyn RIVAS MD, Tom Celeste Primary Care Provider [phone] Reason for Visit * Reason Comments eRx-Medication Refill Encounter Details Date Type Department Care Team (Late st Contact Info) Description 07/31/2023 Refill Family Practice [facility] [address] [place] [address] Temitope Smyth PA-C [address] [facility] [place] [address] Allergies Active Allergy Reactions Criticality Noted Date Comments Sulfa Antibiotics 04/03/2013 Generalized uticaria. documented as of this encounter (statuses as of 08/01/2023) Medications Medication Sig Dispensed Refills Start Date End Date Status Albuterol Sulfate HFA 108 (90 Base) MCG/ACT [...] As directed 1 Each 0 07/20/2023 Active Azithromycin 250 MG Oral Tablet (Zithromax) TAKE 2 TABLETS BY MOUTH TODAY, THEN TAKE 1 TABLET DAILY FOR 4 DAYS 6 Tablet 0 08/01/2023 Active predniSONE 20 MG Oral Tablet (Deltasone) TAKE 2 TABLETS BY MOUTH IN THE MORNING 10 Tablet 2 08/01/2023 Active predniSONE 20 MG Oral Tablet (Deltasone) Take 2 Tablets by mouth in the morning. Rescue kit. 10 Tablet 2 01/10/2023 3 Discontinued Azithromycin 250 MG Oral Tablet (Zithromax) TAKE 2 TABLETS BY MOUTH TODAY, THEN TAKE 1 TABLET DAILY FOR 4 DAYS 6 Tablet 0 01/10/2023 3 Discontinued Hospital, Clinic, or Other Facility [...] as of this encounter (statuses as of 08/01/2023) Active Problems Problem Noted Date Diagnosed Date [...] as of this encounter (statuses as of 08/01/2023) Resolved Problems Problem Noted Date Diagnosed Date [...] as of this encounter (statuses as of 08/01/2023) Immunizations Name Administration Dates Next Due COVID-19 mRNA, LNP-s, No Pre serve, 2-Dose Series (S[employer]cient) 11/10/2020,10/20/2020 Covid-19, Mrna, Lnp-s, Pf, B ivalent, 30 Mcg, IM, 12 yrs and above (Senscient) 06/05/2022 Pneumococcal Conjugate Vacc, 13 Valent (Prevnar) [...] encounter Miscellaneous Notes * Telephone Encounter - Temitope Smyth PA-C - 08/01/2023 6:49 PM ESTSigned Prescriptions: Disp Refills Azithromycin 250 MG Oral Tablet (Zithromax)6 Tabl*0 Sig: TAKE 2 TABLETS BY MOUTH TODAY, THEN TAKE 1 TABLET DAILY FOR 4 DAYS Authorizing Provider: TEMITOPE SMYTH predniSONE 20 MG Oral Tablet (Deltasone) 10 Tab*2 Sig: TAKE 2 TABLETS BY MOUTH IN THE MORNING Authorizing Provider: TEMITOPE SMYTH * Telephone Encounter - Shila Calix LPN - 08/01/2023 8:22 AM EST Pending Prescriptions: Disp Refills Azithromycin 250 MG Oral Tablet [Pharmacy *6 Tabl*0 Sig: TAKE 2 TABLETS BY MOUTH TODAY, THEN TAKE 1 TABLET DAILY FOR 4 DAYS predniSONE 20 MG Oral Tablet [Pharmacy Med*10 Tab*2 Sig: TAKE 2 TABLETS BY MOUTH IN THE MORNING * Telephone Encounter - Shila Calix LPN - 08/01/2023 8:21 AM EST Pending Prescriptions: Disp Refills Azithromycin 250 MG Oral Tablet (Zithroma*6 Tabl*0 Sig: TAKE 2 TABLETS BY MOUTH TODAY, THEN TAKE 1 TABLET DAILY FOR 4 DAYS predniSONE 20 MG Oral Tablet (Deltasone) *10 Tab*2 Sig: TAKE 2 TABLETS BY MOUTH IN THE MORNING Last Visit: 06/22/2023 (in office), Visit date not found (telemedicine) Next Visit: 09/20/2023 Last date the medication was ordered: Patient Active Problem List Diagnosis Code ADVANCE DIRECTIVE INFORMATION HTN, goal below 140/90 I10 Moderate persistent asthma with exacerbation J45.41 Chronic bronchitis ([facility]) J42 COPD, group C, by GOLD 2017 classification ([facility]) J44.9 Labs: Lab Results Component Value Date/Time CREATININE - [facility] 0.7 09/12/2022 12:09 PM CREATININE - [facility] 0.9 08/26/2019 08:26 AM CREATININE, RANDOM URINE - [facility] 75 03/12/2023 08:47 AM Lab Results Component Value Date/Time POTASSIUM - [facility] 4.7 09/12/2022 12:09 PM POTASSIUM - [facility] 4.7 08/26/2019 08:26 AM Lab Results Component Value Date/Time TSH - [facility] 3.59 10/01/2019 08:25 AM Lab Results Component Value Date/Time LDL CHOLESTEROL (CALCULATED) - [facility] 86 08/26/2019 08:26 AM LDL CHOLESTEROL (CALCULATED) - [facility] 88 08/24/2015 07:58 AM LDL CHOLESTEROL (DIRECT MEASURE) - [facility] NOT APPLICABLE 08/26/2019 08:26 AM LDL CHOLESTEROL (DIRECT MEASURE) - [facility] NOT APPLICABLE 08/24/2015 07:58 AM LDL CHOLESTEROL (DIRECT MEASURE) - [facility] 121 (H) 02/21/2007 01:16 PM Lab Results Component Value Date/Time ALT - [facility] 21 09/12/2022 12:09 PM ALT - [facility] 29 08/26/2019 08:26 AM Hemoglobin AIC Results: Lab Results Component Value Date/Time HEMOGLOBIN A1C - [facility] 5.7 02/21/2007 01:16 PM * Telephone Encounter - Neto Moncada - 07/31/2023 1:53 PM ESTPending Prescriptions: Disp Refills Azithromycin 250 MG Oral Tablet [Pharmacy *6 Tabl*0 Sig: TAKE 2TABLETS BY MOUTH TODAY, THEN TAKE 1 TABLET DAILY FOR 4 DAYS predniSONE 20 MG Oral Tablet [Pharmacy Med*10 Tab*2 Sig: TAKE 2 TABLETS BY MOUTH IN THE MORNING documented in this encounter Plan of Treatment Upcoming Encounters Date Type Department Care Team (Late st Contact Info) Description 09/20/2023 7:40 AM EST Office Visit Family Practice [facility] [address] [place] [address] Alie Abel DO [address] [place], [place] [address] Health Maintenance Due Date Last Done Comments DISCUSS TOBACCO CESSATION (REFER TO SMARTSET #7323) 1940 Alpha-1 Antitrypsin 1958 *ADVANCE DIRECTIVE NOT ON FILE 05/30/2020 Depression Screening 07/12/2021 07/12/2020 DXA Scan 12/28/2021 12/28/2014 DTaP,Tdap,and Td Vaccines (2 - Td or Tdap) 04/16/2023 04/16/2013 Influenza Vaccine (FLU shot) (#1) 2023 06/09/2022, 05/27/2021, 05/26/2021, Additional history exists GFR 09/12/2023 09/12/2022, 06/17, [...] Not on filedocumented as of this encounter Care Teams Wood Sash And Frame Carpenter Relationship Specialty Start Date End Date Marilyn RIVAS, Tom Celeste MD [address] [place], [place] [address] PCP - General Family Medicine 09/25/18 documented as of this encounter
--- OUTSIDE RECORDS SUMMARY | 2023-10-17 20:33 | External Medical Summary | Summary of Care ---
Author Name Unknown Organization [facility] Address [address] [place] [address] Phone [phone] Care Team Providers Care Electronics Engineering Technician Name Role Phone Marilyn RIVAS MD, Tom Celeste Primary Care Provider [phone] Reason for Visit * Reason Comments Re-Check Encounter Details Date Type Department Care Team (Latest Contact Info) Description 09/20/2023 7:40 AM EST Office Visit Family Practice [facility] [place] [address] [facility] [place] [address] Alie Abel, DO [address] [facility] [place] [address] COPD, group C, by GOLD 2017 classification (HCC)*; Tobacco use; HTN, goal below 140/90; Postmenopausal status, age-related; Screening for lipoid disorders Allergies Active Allergy Reactions Criticality Noted Date Comments Sulfa Antibiotics 04/03/2013 Generalized uticaria. documented as of this encounter (statuses as of 10/03/2023) Medications Medication Sig Dispensed Refills Start Date End Date Status Albuterol Sulfate HFA 108 (90 Base) MCG/ACT Inhalation Aerosol Solution Inhale 2 Puffs by mouth every 6 hours as needed for Shortness of Breath or Wheezing. 18 g 3 01/10/2023 Active Anoro Ellipta 62.5-25 MCG/ACT Inhalation Aerosol [...] A DAY 360 mL 3 07/11/2023 Active Albuterol Sulfate (2.5 MG/3ML) 0.083% Inhalation Nebulization Solution (Proventil) Inhale 1 Vial via nebulizer every 6 hours as needed for Wheezing. 300 mL 11 08/01/2023 Active Triamterene-HCTZ 37.5-25 MG Oral Capsule (Dyazide)Indicatio ns:HTN, goal below 140/90 TAKE 1 CAPSULE BY MOUTH EVERY DAY IN THE MORNING 90 Capsule 1 08/21/2023 Active Atenolol 50 MG Oral Tablet (Tenormin)Indicati ons:HTN, goal below 140/90 TAKE 1 TABLET BY MOUTH EVERY DAY IN THE MORNING 90 Tablet 1 08/21/2023 Active Varenicline Tartrate (Starter) 0.5 MG X 11 & 1 MG X 42 Tablet Therapy PackIndications:To bacco use As directed 53 Each 0 09/20/2023 Active Varenicline Tartrate (Starter) 0.5 MG X 11 & 1 MG X 42 Tablet Therapy Pack As directed 1 Each 0 07/20/2023 4 Discontinu ed(Refill) Azithromycin 250 MG Oral Tablet (Zithromax) TAKE 2 TABLETS BY MOUTH TODAY, THEN TAKE 1 TABLET DAILY FOR 4 DAYS 6 Tablet 0 08/01/2023 4 Discontinu ed(Medicat ion List Clean Up) predniSONE 20 MG Oral Tablet (Deltasone) TAKE 2 TABLETS BY MOUTH IN THE MORNING 10 Tablet 2 08/01/2023 4 Discontinu ed(Medicat ion List Clean Up) Nirmatrelvir&Riton avir 300/100 20 x 150 MG & 10 x 100MG Oral Tablet Therapy Pack (Paxlovid) Take 2 pink tablets of Nirmatrelvir and 1 white tablet of Ritonavir two times a day by mouth. 30 Tablet 0 08/01/2023 4 Discontinu ed(Medicat ion List Clean Up) Ipratropium [place] 0.02 % Inhalation Solution (Atrovent) Inhale 2.5 mL via nebulizer in the morning and 2.5 mL at noon and 2.5 mL in the evening and 2.5 mL before bedtime. 300 mL 12 08/01/2023 4 Discontinu ed(Medicat ion List Clean Up) Hospital, Clinic, or Other Facility Administered Medication Ordered Dose Route Frequency Start Date End Date Status albuterol (PROVENTIL HFA) inhaler 4 PuffIndications:Chronic obstructive pulmonary disease, unspecified COPD type (HCC) 4 Puff IN Q4H PRN 10/04/2018 Active albuterol sulfate (PROVENTIL) (2.5 MG/3ML) 0.083% inhalation solution 2.5 mgIndications:COPD exacerbation (HCC) 2.5 mg NEBULIZER Q4H PRN 05/09/2019 Active documented as of this encounter (statuses as of 10/03/2023) Active Problems Problem Noted Date Diagnosed Date Tobacco use 09/20/2023 COPD, group C, by GOLD 2017 classification 05/25 Overview: Per COPD GOLD Classification Chronic bronchitis 10/01/2019 Moderate persistent asthma with exacerbation HTN, goal below 140/90 02/21/2007 ADVANCE DIRECTIVE INFORMATION 08/14/2005 Overview: Yes, Patient instructed to provide copy of advance directive for provider to review and to be scanned into Electronic Medical Record documented as of this encounter (statuses as of 10/03/2023) Resolved Problems Problem Noted Date Diagnosed Date [...] as of this encounter (statuses as of 10/03/2023) Immunizations Name Administration Dates Next Due COVID-19 mRNA, LNP-s, No Pre serve, 2-Dose Series (FashionQlub) 06/10/2021,11/10/2020,10/20/2020 COVID-19, LNP-s, No Preserve , Fran-sucrose, Ages 12+ (Pfizer) 01/06/2022 COVID-19, MRNA-LNP, 23-24, P F, 30 MCG/0.3 mL, 12 YRS AND ABOVE, IM ([facility]) 06/08/2023 Covid-19, Mrna, Lnp-s, Pf, B ivalent, 30 Mcg, IM, 12 yrs and above (FashionQlub) 06/05/2022 Pneumococcal Conjugate Vacc, 13 Valent (Prevnar) 08/20/2015 Pneumococcal Polysaccharide PPV23 (Pneumovax) 07/16/2006 RSV Vac., Recomb, Adjuvant, PF,0.5 Ml (Arexvy) 05/31/2023 Season Influenza, Quad, PF, Adjuvanted, 65+ Yrs, IM (FLUAD) 06/09/2022 Seasonal Influenza Virus Vac cine, Unspecified Formulation 06/02/2023 Seasonal Influenza, PF, 6 M & above, IM , (FluLaval or Fluzone) 05/30/2020,05/28/2019,06/13/2018 Seasonal Influenza, Quadriva lent Hd (Fluzone [...] Smoking Tobacco: Every Day Cigarettes 0.3 50 Smokeless Tobacco: Never Tobacco Cessation:Ready to Q uit: Not Asked; Counseling Given: Not Answered Alcohol Use Standard Drinks/Week Comments Yes 0 [...] on file documented as of this encounter Last Filed Vital Signs Vital Sign Reading Time Taken Comments Blood Pressure 122/64 09/20/2023 7:41 AM EST Pulse 72 09/20/2023 7:41 AM EST Temperature 35.7 C (96.2 F) 09/20/2023 7:41 AM ES T Respiratory Rate 16 09/20/2023 7:41 AM EST Oxygen Saturation 94% 09/20/2023 7:41 AM EST Inhaled Oxygen Concentration - - Weight 79.7 kg (175 lb 12.8 oz) 09/20/2023 7:41 AM EST Height 172.7 cm (5' 8") 09/20/2023 7:41 AM EST Body Mass Index 26.73 09/20/2023 7:41 AM EST documented in this encounter Progress Notes * Alie Abel DO - 09/20/2023 7:58 AM EST Subjective: Lauren Burris is a 82 year old female. Chief Complaint Patient presents with Re-Check HPI: Patient's past medical, surgical, family, and social history were reviewed. Medications, allergies, immunizations, and health care maintenance screenings were also reviewed. Lauren Burris presents for 6 month recheck. Had cataract surgery Hypertension Follow Up The patient is taking medications as instructed. No medication side effects are described. The patient is not monitoring home blood pressures. The patient denies any acute focal neurologic symptoms. The patient reports no chest pain, no orthopnea, and no dyspnea on exertion. The patient denies intermittent claudication symptoms. PHM: Patient Active Problem List Diagnosis Code ADVANCE DIRECTIVE INFORMATION HTN, goal below 140/90 I10 Moderate persistent asthma with exacerbation J45.41 Chronic bronchitis ([facility]) J42 COPD, group C, by GOLD 2017 classification ([facility]) J44.9 Tobacco use Z72.0 Outpatient Medications Prior to Visit Medication Sig Dispense Refill Atenolol 50 MG Oral Tablet (Tenormin) TAKE 1 TABLET BY MOUTH EVERY DAY IN THE MORNING 90 Tablet 1 Triamterene-HCTZ 37.5-25 MG Oral Capsule (Dyazide) TAKE 1 CAPSULE BY MOUTH EVERY DAY IN THE [id number] Capsule 1 Albuterol Sulfate (2.5 MG/3ML) 0.083% Inhalation Nebulization Solution (Proventil) Inhale 1 Vial via nebulizer every 6 hours as needed for Wheezing. 300 mL 11 [DISCONTINUED] Azithromycin 250 MG Oral Tablet (Zithromax) TAKE 2 TABLETS BY MOUTH TODAY, THEN TAKE1 TABLET DAILY FOR 4 DAYS 6 Tablet 0 [DISCONTINUED] Ipratropium [place] 0.02 % Inhalation Solution (Atrovent) Inhale 2.5 mL via nebulizer in the morning and 2.5 mL at noon and 2.5 mL in the evening and 2.5 mL before bedtime. 300 mL 12 [DISCONTINUED] Nirmatrelvir&Ritonavir 300/100 20 x 150 MG & 10 x 100MG Oral Tablet Therapy Pack (Paxlovid) Take 2 pink tablets of Nirmatrelvir and 1 white tablet of Ritonavir two times a day by mouth. 30 Tablet 0 [DISCONTINUED] predniSONE 20 MG Oral Tablet (Deltasone) TAKE 2 TABLETS BY MOUTH IN THE MORNING 10 Tablet 2 [DISCONTINUED] Varenicline Tartrate (Starter) 0.5 MG X 11 & 1 MG X 42 Tablet Therapy Pack As directed 1 Each PACK Ipratropium-Albuterol 0.5-2.5 (3) MG/3ML Inhalation Solution (Duoneb) INHALE 3 ML VIA NEBULIZER 4 TIMES A DAY 360 mL 3 Benzonatate 100 MG Oral Capsule (Tessalon Per[place]) Take 1 Capsule by mouth 3 times a day as needed for Cough. 30 Capsule 1 Montelukast Sodium 10 MG Oral Tablet (Singulair) TAKE 1 TABLET BY MOUTH EVERY DAY IN THE EVENING 90Tablet 3 Anoro Ellipta 62.5-25 MCG/ACT Inhalation Aerosol Powder Breath Activated (umeclidinium-vilanterol) INHALE 1 PUFF BY MOUTH EVERY DAY 180 Each 3 Albuterol Sulfate HFA 108 (90 Base) MCG/ACT Inhalation Aerosol Solution Inhale 2 Puffs by mouth every 6 hours as needed for Shortness of Breath or Wheezing. 18 g 3 Facility-Administered Medications Prior to Visit Medication Dose Route Frequency Provider Last Rate Last Admin albuterol sulfate (PROVENTIL) (2.5 MG/3ML) 0.083% inhalation solution 2.5 mg 2.5 mg Nebulizer Q4H PRN Tom Sanders III, MD 2.5 mg at 05/15/19 0952 albuterol (PROVENTIL HFA) inhaler 4 Puff 4 Puff Inhalation Q4H PRN Tom Sanders III, MD Last reviewed on 09/20/2023 7:40 AM by Gela Feldman LPN Review of patient's allergies indicates: Allergen Reactions Sulfa Antibiotics Generalized uticaria. Objective: BP 122/64 | Pulse 72 | Temp 35.7 C (96.2 F) (Tympanic) | Resp 16 | Ht 1.727 m (5' 8") | Wt 79.7kg (175 lb 12.8 oz) | SpO2 94% | BMI 26.73 kg/m | BSA 1.96 m Physical Exam: General: alert, healthy, and no distress Head: Normocephalic, No masses, lesions, tenderness or abnormalities Eye Exam: PERRLA, extraocular movements intact, conjunctiva are pink and non- injected, sclera clear Ears: External ears normal, Canals clear, TM's Normal Nose: no mucosal erythema, no mucosal edema, no purulent discharge Neck: supple, no adenopathy, no bruits, thyroid normal size, non-tender, without nodularity Heart: regular rate & rhythm, no murmur, and no gallops Lungs: chest symmetric with normal AP diameter, no chest deformities noted, no chest wall tenderness, lungs clear to auscultation Pulses: carotid=2/4 w/o bruits Extremities: less than 2 second capillary refill, no joint deformities, effusion, or inflammation Neuro Exam: alert & oriented x 3 with fluent speech, no focal motor/sensory deficits, gait normal, reflexes normal and symmetric Latest Reference Range & Units 10/01/19 08:25 04/13/20 10:40 04/15/20 09:16 04/15/20 09:55 03/29/21 07:19 04/21/21 08:29 07/04/22 07:08 08/16/22 14:33 09/12/22 12:09 09/22/22 11:36 03/12/23 08:47 Sodium 135 - 146 mmol/L 138 137 135 Potassium 3.5 - 5.1 mmol/L 4.5 4.7 4.7 Chloride 98 - 107 mmol/L 100 99 99 CO2 22 - 32 mmol/L 25 28 28 BUN 6 - 20 mg/dL 10 14 9 Creatinine 0.5 - 1.0 mg/dL 0.8 0.7 0.7 Estimated Glomerular Filtration Rate >=60 mL/min 73.2 83 84 Anion Gap 7 - 15 mmol/L 13 10 8 Glucose 70 - 120 mg/dL 115 118 84 Calcium 8.4 - 10.2 mg/dL 10.0 10.1 10.0 Protein 6.0 - 8.3 g/dL 6.3 TSH 0.27 - 4.2 uIU/mL 3.59 TSH WITH FREE T4 IF INDICATED Rpt FREE T4 REFLEXIVE 0.9 - 1.7 ng/dL NOT APPLICABLE MYCODE SUBSEQUENT - SPECIMEN OBTAINED CBC Rpt ! Rpt ! CBC WITH WBC DIFFERENTIAL Rpt ! WBC 4.00 - 10.80 K/uL 11.39 (H) 12.01 (H) RBC 3.85 - 5.15 M/uL 4.48 HGB 12.0 - 15.3 g/dL 14.1 14.5 HCT 36.0 - 45.2 % 41.1 42.0 MCV 81.5 - 97.5 fL 95.0 PLT 140 - 400 K/uL 360 383 Absolute Neutrophils 1.80 - 7.70 K/uL 6.70 Absolute Lymphocytes 1.00 - 4.80 K/ul 3.75 Absolute Monocytes 0.00 - 1.10 K/uL 1.14 (H) Absolute Eosinophils 0.00 - 0.70 K/uL 0.24 Absolute Basophils 0.00 - 0.20 K/uL 0.06 CORONAVIRUS RESULT NEG NEGATIVE SARS-COV-2 (COVID-19), NAAT Rpt Albumin 3.8 - 5.0 g/dL 4.5 AST 10 - 35 U/L 16 ALT 10 - 35 U/L 21 Alkaline Phosphatase 35 - 130 U/L 76 Bilirubin, Total <=1.2 mg/dL 0.3 SURGICAL PATHOLOGY Rpt Albumin / Creatinine Ratio, Urine <30 mg/g Creat <16 ALBUMIN / CREATININE RATIO, URINE Rpt Albumin, Random Urine mg/dL <1.20 Creatinine, Random Urine mg/dL 75 XR L SPINE COMPLETE Rpt CT NECK W CONTRAST Rpt VASC DUPLEX VENOUS LE UNILAT Rpt COLONOSCOPY Rpt ASSESSMENT/PLAN: Patient is interested in quitting smoking, has tried Chantix in the past, would like to try again, reviewed side effects and benefits, risks alternatives. Appropriate use, Blood pressure well controlled, continue current medications, check labs annually. A healthy, low fat, low cholesterol diet and 30-60 minutes of cardiovascular exercise daily were encouraged. A total of 1500mg of Calcium and 1000 IU of vitamin D were recommended daily, to be obtained from a combination of both diet and supplement sources. UTD vaccines SPF 30+ COPD, group C, by GOLD 2017 classification (HCC) (Primary) - [id number], QN; Future; Expected date: 09/20/2023 Well controlled, continue Anoro, and albuterol as needed. Tobacco use - Varenicline Tartrate (Starter) 0.5 MG X 11 & 1 MG X 42 Tablet Therapy Pack; As directed HTN, goal below 140/90 - RENAL FUNCTION PANEL; Future; Expected date: 09/20/2023 - COMPREHENSIVE METABOLIC PANEL; Future; Expected date: 09/20/2023 Well controlled, continue Dyazide. Postmenopausal status, age-related - DEXA SCAN/BONE MINERAL AXIAL; Future; Expected date: 09/20/2023 Screening for lipoid disorders - LIPID PANEL WITH DIRECT LDL IF TG IS HIGH; Future; Expected date: 09/20/2023 Update via call or email in 1 month, for refill Chantix call sooner with questions, problems Follow-up in 6 months or sooner if needed 35 min spent with patient, reviewing history, performing physical exam, reviewing labs, studies, specialist OVNs, and reports, educating and coordinating care, discussing treatment Alie Abel DO documented in this encounter Nursing Notes * Gela Feldman LPN - 09/20/2023 7:34 AM EST Lauren Celeste Burris presents for 6 month recheck. Medications & HM reviewed. documented in this encounter Plan of Treatment Upcoming Encounters Date Type Department Care Team (Late st Contact Info) Description 01/22/2024 8:30 AM EDT Imaging Radiology, [facility] [address] [facility] [place] [address] 03/26/2024 7:40 AM EDT Office Visit Family Practice [facility] [address] [facility] [place] [address] Alie Abel, [address] [facility] [place] [address] Scheduled Orders Name Type Priority Associated Diagnoses Orde r Schedule RENAL FUNCTION PANEL Lab Routine HTN, goal below 140/90 Expected: 09/20/2023 (Approximate), Expires: 09/20/2024 [id number], QN Lab Routine COPD, group C, by GOLD 2017 classification (HCC) Expected: 09/20/2023 (Approximate), Expires: 09/20/2024 DEXA SCAN/BONE MINERAL AXIAL Medical Imaging Routine Postmenopausal status, age-related Expected: 09/20/2023 (Approximate), Expires: 10/21/2024 LIPID PANEL WITH DIRECT LDL IF TG IS HIGH Lab Routine Screening for lipoid disorders Expected: 09/20/2023, Expires: 09/20/2024 COMPREHENSIVE METABOLIC PANEL Lab Routine HTN, goal below 140/90 Expected: 09/20/2023 (Approximate), Expires: 09/19/2024 Health Maintenance Due Date Last Done Comments Alpha-1 Antitrypsin 1958 *ADVANCE DIRECTIVE NOT ON FILE 05/30/2020 Depression Screening 07/12/2021 07/12/2020 DXA Scan 12/28/2021 12/28/2014 DTaP,Tdap,and Td Vaccines (2 - Td or Tdap) 04/16/2023 04/16/2013 GFR 09/12/2023 09/12/2022, 06/17, 03/29/2021, Additional history exists DISCUSS TOBACCO CESSATION (REFER TO SMARTSET #9906) 09/20/2024 09/20/2023 (Discussed) O2 ASSESSMENT COMPLETED IN PAST YEAR FOR COPD 09/20/2024 09/20/2023 Albumin/Creatinine Ratio 03/12/2026 03/12/2023 Pneumococcal Vaccine: 65+ Years Completed 08/20/2015, 07/16/2006 Zoster Vaccines Completed 05/26/2019, 10/2018, 10/14/2008 COLONOSCOPY-EVERY 3 YRS AGES 18-100 Discontinued 04/15/2020, 04/15/2020, 10/19/2016, Additional history exists Influenza Vaccine (FLU shot) Completed 06/02/2023, 06/09/2022, 05/26/2021, Additional history exists COVID-19 Vaccine Completed 06/08/2023, [...] of this encounter Visit Diagnoses Diagnosis COPD, group C, by GOLD 2017 classification (HCC)- Primary Tobacco use Tobacco use disorder HTN, goal below 140/90 Unspecified essential hypertension Postmenopausal status, age-related Asymptomatic postmenopausal status (age-related) (natural) Screening for lipoid disorders documented in this encounter Care Teams Electronics Engineering Technician Relationship Specialty Start Date End Date Tom Sanders III, MD [address] [place] [address] PCP - General Family Medicine 09/25/18 documented as of this encounter
--- OUTSIDE RECORDS SUMMARY | 2023-10-17 20:33 | External Medical Summary | Summary of Care ---
Author Name Unknown Organization [facility] Address [address] [place] [address] Phone [phone] Care Team Providers Care Motorcycle Technician Name Role Phone Marilyn RIVAS MD, Asuncion Celeste Primary Care Provider [phone] Reason for Visit * Reason Comments eRx-Medication Refill Encounter Details Date Type Department Care Team (Late st Contact Info) Description 08/21/2023 Refill Family Practice [facility] [address] [facility] [place] [address] Asuncion Schneider III, MD [address] [place] [address] HTN, goal below 140/90 Allergies Active Allergy Reactions Criticality Noted Date Comments Sulfa Antibiotics 04/03/2013 Generalized uticaria. documented as of this encounter (statuses as of 08/21/2023) Medications Medication Sig Dispensed Refills Start Date End Date Status Albuterol Sulfate HFA 108 (90 Base) MCG/ACT Inhalation Aerosol Solution Inhale 2 Puffs by mouth every 6 hours as needed for Shortness of Breath or Wheezing. 18 g 3 3 Active Anoro Ellipta 62.5-25 MCG/ACT Inhalation Aerosol Powder Breath Activated (umeclidinium-micheline nterol) INHALE 1 PUFF BY MOUTH EVERY DAY 180 Each 3 3 Active Montelukast Sodium 10 MG Oral Tablet (Singulair)Indicat ions:Unspecified asthma, uncomplicated TAKE 1 TABLET BY MOUTH EVERY DAY IN THE EVENING 90 Tablet 3 3 Active Benzonatate 100 MG Oral Capsule (Tessalon Perlboone) Take 1 Capsule by mouth 3 times a day as needed for Cough. 30 Capsule 1 3 Active Ipratropium-[place] rol 0.5-2.5 (3) MG/3ML Inhalation Solution (Duoneb)Indication s:COPD, severity to be determined (HCC) INHALE 3 ML VIA NEBULIZER 4 TIMES A DAY 360 mL 3 3 Active Varenicline Tartrate (Starter) 0.5 MG X 11 & 1 MG X 42 Tablet Therapy Pack As directed 1 Each 0 3 Active Azithromycin 250 MG Oral Tablet (Zithromax) TAKE 2 TABLETS BY MOUTH TODAY, THEN TAKE 1 TABLET DAILY FOR 4 DAYS 6 Tablet 0 3 Active predniSONE 20 MG Oral Tablet (Deltasone) TAKE 2 TABLETS BY MOUTH IN THE MORNING 10 Tablet 2 3 Active Nirmatrelvir&Riton avir 300/100 20 x 150 MG & 10 x 100MG Oral Tablet Therapy Pack (Paxlovid) Take 2 pink tablets of Nirmatrelvir and 1 white tablet of Ritonavir two times a day by mouth. 30 Tablet 0 3 Active Albuterol Sulfate (2.5 MG/3ML) 0.083% Inhalation Nebulization Solution (Proventil) Inhale 1 Vial via nebulizer every 6 hours as needed for Wheezing. 300 mL 11 3 Active Ipratropium [place] 0.02 % Inhalation Solution (Atrovent) Inhale 2.5 mL via nebulizer in the morning and 2.5 mL at noon and 2.5 mL in the evening and 2.5 mL before bedtime. 300 mL 12 3 Active Triamterene-HCTZ 37.5-25 MG Oral Capsule (Dyazide)Indicatio ns:HTN, goal below 140/90 TAKE 1 CAPSULE BY MOUTH EVERY DAY IN THE MORNING 90 Capsule 1 3 Active Atenolol 50 MG Oral Tablet (Tenormin)Indicati ons:HTN, goal below 140/90 TAKE 1 TABLET BY MOUTH EVERY DAY IN THE MORNING 90 Tablet 1 3 Active Atenolol 50 MG Oral Tablet (Tenormin)Indicati ons:HTN, goal below 140/90 TAKE 1 TABLET BY MOUTH EVERY DAY IN THE MORNING 90 Tablet 1 3 08/21/20 23 Discontinued Triamterene-HCTZ 37.5-25 MG Oral Capsule (Dyazide)Indicatio ns:HTN, goal below 140/90 TAKE 1 CAPSULE BY MOUTH EVERY DAY IN THE MORNING 90 Capsule 1 3 08/21/20 23 Discontinued Hospital, Clinic, or Other Facility Administered [...] as of this encounter (statuses as of 08/21/2023) Active Problems Problem Noted Date Diagnosed Date [...] as of this encounter (statuses as of 08/21/2023) Resolved Problems Problem Noted Date Diagnosed Date Resolved Date Current moderate episode of major depressive disorder without prior episode 03/24/2021 1 COPD, group B, by GOLD 2017 classification 10/01/2019 05/27/2020 Overview: Per COPD GOLD Classification COPD, group C, by GOLD 2017 classification 06/30/2019 01/29/2020 Overview: Per COPD GOLD Classification COPD, mild 11/18/2018 06/03/2019 COPD exacerbation 09/25/2018 08/28/2019 Overview: acute documented as of this encounter (statuses as of 08/21/2023) Immunizations Name Administration Dates Next Due COVID-19 mRNA, LNP-s, No Pre serve, 2-Dose Series (Pfizer) 11/10/2020,10/20/2020 Covid-19, Mrna, Lnp-s, Pf, B ivalent, 30 Mcg, IM, 12 yrs and above (Pfizer) 06/05/2022 Pneumococcal Conjugate Vacc, 13 Valent (Prevnar) [...] encounter Miscellaneous Notes * Telephone Encounter - Shena Schilling, [facility] - 08/21/2023 4:45 PM EST Signed Prescriptions: Disp Refills Triamterene-HCTZ 37.5-25 MG Oral Capsule (*90 Cap*1 Sig: TAKE 1 CAPSULE BY MOUTH EVERY DAY IN THE MORNINGAuthorizing Provider: ASUNCION SCHNEIDER III User: SHENA SCHILLING Atenolol 50 MG Oral Tablet (Tenormin) 90 Tab*1 Sig: TAKE 1 TABLET BY MOUTH EVERY DAY IN THE MORNINGAuthorizing Provider: ASUNCION SCHNEIDER III User: SHENA SCHILLING documented in this encounter Plan of Treatment Upcoming Encounters Date Type Department Care Team (Late st Contact Info) Description 09/20/2023 7:40 AM EST Office Visit Family Practice [facility] [address] [place] [address] Alie Abel DO [address] [place] [address] Health Maintenance Due Date Last Done Comments DISCUSS TOBACCO CESSATION (REFER TO SMARTSET #[id number]) 1940 Alpha-1 Antitrypsin 1958 *ADVANCE DIRECTIVE NOT [...] as of this encounter Visit Diagnoses Diagnosis HTN, goal below 140/90 Unspecified essential hypertension documented in this encounter Care Teams Motorcycle Technician Relationship Specialty Start Date End Date Asuncion Schneider III, MD [address] [facility] [place] [address] PCP - General Family Medicine 09/25/18 documented as of this encounter
--- OUTSIDE RECORDS SUMMARY | 2023-10-17 20:33 | External Medical Summary | Summary of Care ---
Author Name Unknown Organization [facility] Address [address] [place] [address] Phone [phone] Care Team Providers Care Acid Mixer Name Role Phone Marilyn RIVAS MD, Asuncion Celeste Primary Care Provider [phone] Reason for Visit * Reason Comments eRx-Medication Refill Encounter Details Date Type Department Care Team (Late st Contact Info) Description 07/10/2023 Refill Family Practice [facility] 200 [facility] [place] [address] Asuncion Schneider III, MD 200 [place] [address] COPD, severity to be determined (HCC) Allergies [...] mRNA, LNP-s, No Pre serve, 2-Dose Series ([employer]) 11/10/2020,10/20/2020 Covid-19, Mrna, Lnp-s, Pf, B ivalent, 30 Mcg, IM, 12 yrs and above ([employer]) 06/05/2022 Pneumococcal Conjugate Vacc, 13 Valent (Prevnar) [...] encounter Miscellaneous Notes * Telephone Encounter - Asuncion Schneider III, MD - 08/01/2023 4:03 PM EST That would be okay please place appropriate order will sign * Telephone Encounter - Scarlett Curran CPhT - 07/27/2023 8:36 AM EST Pt is calling regarding her Ipratropium-Albuterol 0.5-2.5 (3) MG/3ML Inhalation Solution (Duoneb). PC to pharmacy to find out what they have in stock as an alternative and [facility] stated the only alternative they have right now is the Ipratropium and Albuterol . Please advise Thank you, Zakia Curran Shipping Inspector I Centralized Clinical Pharmacy Services (Formerly Telepharmacy) 07/27/2023,8:41 AM * Addendum Note - Asuncion Schneider III, MD - 07/20/2023 4:20 PM EDTAddended by: ASUNCION SCHNEIDER on: 07/20/2023 04:20 PM Modules accepted: Orders * Telephone Encounter - Asuncion Schneider III, MD - 07/20/2023 4:18 PM EDT Call [facility] ? Alternative? * Telephone Encounter - Aishwarya Dias OSA - 07/19/2023 1:15 PM EDT Patient called because [facility] contacted her and they are not carrying this brand anymore and need to speak to PCP for an alternative. Please contact [facility]. * Telephone Encounter - Kristel Gautam RPh - 07/11/2023 7:16 AM EDTSigned Prescriptions: Disp [...] 7:40 AM EST Office Visit Family Practice [facility] [place] [address] [place] [address] Alie Abel, 200 [facility] [place] [address] Health Maintenance Due Date Last Done Comments DISCUSS TOBACCO CESSATION (REFER TO SMARTSET #9321) 1940 Alpha-1 Antitrypsin 1958 *ADVANCE DIRECTIVE NOT [...] classified documented in this encounter Care Teams Acid Mixer Relationship Specialty Start Date End Date Asuncion Schneider III, MD 200 [place] [address] PCP - General Family Medicine 09/25/18 documented as of this encounter
--- OUTSIDE RECORDS SUMMARY | 2023-10-17 20:33 | External Medical Summary | Summary of Care ---
Author Name Unknown Organization [facility] Address [address] [place] [address] Phone [phone] Care Team Providers Care Renewable Energy Broker Name Role Phone Marilyn RIVAS MD, John E Primary Care Provider [phone] Reason for Visit * Reason Onset Date Comments Advice 08/01/2023 Encounter Details Date Type Department Care Team (Late st Contact Info) Description 08/01/[address] [facility] 200 [facility] [place] [address] Tom Sanders III, MD 200 [facility] [address] Advice Allergies Active Allergy Reactions Criticality Noted Date Comments Sulfa Antibiotics 04/03/2013 Generalized uticaria. documented as of this encounter (statuses as of 08/03/2023) Medications Medication Sig Dispensed Refills Start Date End Date Status Albuterol Sulfate HFA 108 (90 Base) MCG/ACT Inhalation Aerosol Solution Inhale 2 Puffs by mouth every 6 hours as needed for Shortness of Breath or Wheezing. 18 g 3 3 Active Atenolol 50 MG Oral Tablet (Tenormin)Indicati ons:HTN, goal below 140/90 TAKE 1 TABLET BY MOUTH EVERY DAY IN THE MORNING 90 Tablet 1 3 Active Triamterene-HCTZ 37.5-25 MG Oral Capsule (Dyazide)Indicatio ns:HTN, goal below 140/90 TAKE 1 CAPSULE BY MOUTH EVERY DAY IN THE MORNING 90 Capsule 1 3 Active Anoro Ellipta 62.5-25 MCG/ACT Inhalation [...] Solution (Duoneb)Indication s:COPD, severity to be determined ([facility]) INHALE 3 ML VIA NEBULIZER 4 TIMES A DAY 360 mL 3 3 Active Varenicline Tartrate (Starter) 0.5 MG X 11 & 1 MG X 42 Tablet Therapy Pack As directed 1 Each 0 3 Active Nirmatrelvir&Riton avir 300/100 20 x 150 MG & 10 x 100MG Oral Tablet Therapy Pack (Paxlovid) Take 2 pink tablets of Nirmatrelvir and 1 white tablet of Ritonavir two times a day by mouth. 30 Tablet 0 3 Active predniSONE 20 MG Oral Tablet (Deltasone) Take 2 Tablets by mouth in the morning. Rescue kit. 10 Tablet 2 3 08/01/20 23 Discontinued Azithromycin 250 MG Oral Tablet (Zithromax) TAKE 2 TABLETS BY MOUTH TODAY, THEN TAKE 1 TABLET DAILY FOR 4 DAYS 6 Tablet 0 3 08/01/20 23 Discontinued Hospital, Clinic, or Other Facility [...] as of this encounter (statuses as of 08/03/2023) Active Problems Problem Noted Date Diagnosed Date [...] as of this encounter (statuses as of 08/03/2023) Resolved Problems Problem Noted Date Diagnosed Date [...] as of this encounter (statuses as of 08/03/2023) Immunizations Name Administration Dates Next Due COVID-19 mRNA, LNP-s, No Pre serve, 2-Dose Series ([employer]) 11/10/2020,10/20/2020 Covid-19, Mrna, Lnp-s, Pf, B ivalent, 30 Mcg, IM, 12 yrs and above ([employer]) 06/05/2022 Pneumococcal Conjugate Vacc, 13 Valent (Prevnar) [...] encounter Miscellaneous Notes * Telephone Encounter - Chitar Ott LPN - 08/03/2023 10:45 AM EST Pt aware Paxlovid was sent. Already picked it up & started it * Telephone Encounter - Tenisha Manrique OSA - 08/01/2023 10:49 AM EST Reason for patient call/what is patient requesting? COVID positive home test requesting Paxlovid Have you had symptoms of COVID-19 such as fever, sore throat, shortness of breath? COVID19 Symptoms:yes Date of first symptoms: 07/27 approx Date of last fever: none Date of last symptoms: current Have you had close exposure to someone who tested positive for COVID-19? COVID19 Exposure: no Date of first exposure: n/a Date of last exposure: n/a Testing location requested: Positive COVID 19 test in the past 90 days? Clinic Test no Home test 08/01 Did you have 2 vaccines yes Boosters yes Call Details are Required documented in this encounter Plan of Treatment Upcoming Encounters Date Type Department Care Team (Late st Contact Info) Description 09/20/2023 7:40 AM EST Office Visit Family Practice [facility] [place] 200 [facility] [place] [address] Alie Abel, 200 [facility] [place] [address] Health Maintenance Due Date Last Done Comments DISCUSS TOBACCO CESSATION (REFER TO SMARTSET #1077) 1940 Alpha-1 Antitrypsin 1958 *ADVANCE DIRECTIVE NOT [...] filedocumented as of this encounter Care Teams Renewable Energy Broker Relationship Specialty Start Date End Date Tom Sanders III, MD 200 [facility] [place] [place] [address] PCP - General Family Medicine 09/25/18 documented as of this encounter
--- OUTSIDE RECORDS SUMMARY | 2023-10-17 20:33 | External Medical Summary | Summary of Care ---
Author Name Unknown Organization [facility] Address [address] [place] [address] Phone [phone] Care Team Providers Care Operations And Maintenance Specialist Name Role Phone Marilyn RIVAS MD, Asuncion Celeste Primary Care Provider [phone] Reason for Visit * Reason Comments eRx-Medication Refill Encounter Details Date Type Department Care Team (Late st Contact Info) Description 07/10/2023 Refill Family Practice [facility] 200 [facility] [place] [address] Asuncion Schneider III, MD 200 [place] [address] COPD, severity to be determined (HCC) Allergies [...] mRNA, LNP-s, No Pre serve, 2-Dose Series ([employer]) 11/10/2020,10/20/2020 Covid-19, Mrna, Lnp-s, Pf, B ivalent, 30 Mcg, IM, 12 yrs and above ([employer]) 06/05/2022 Pneumococcal Conjugate Vacc, 13 Valent (Prevnar) [...] . Please advise Thank you, Zakia Curran Catalogue And Special Products Manager I Centralized Clinical Pharmacy Services (Formerly Telepharmacy) 07/27/2023,8:41 AM * Addendum Note - Asuncion Schneider III, MD - 07/20/2023 4:20 PM EDTAddended by: ASUNCION SCHNEIDER on: 07/20/2023 04:20 PM Modules accepted: Orders * Telephone Encounter - Asuncion Schneider III, MD - 07/20/2023 4:18 PM EDT Call [facility] ? Alternative? * Telephone Encounter - Aishwarya Dias OSA - 07/19/2023 1:15 PM EDT Patient called because [facility] contacted her and they are not carrying this brand anymore and need to speak to PCP for an alternative. Please contact [facility]. * Telephone Encounter - Kristel Gautam [...] EST Office Visit Family Practice [facility] [place] [address] [place] [address] Alie Abel, 200 [facility] [place] [address] Health Maintenance Due Date Last Done Comments DISCUSS TOBACCO CESSATION (REFER TO SMARTSET #2582) 1940 Alpha-1 Antitrypsin 1958 *ADVANCE DIRECTIVE NOT [...] classified documented in this encounter Care Teams Operations And Maintenance Specialist Relationship Specialty Start Date End Date Asuncion Schneider III, MD 200 [place] [address] PCP - General Family Medicine 09/25/18 documented as of this encounter
--- OUTSIDE RECORDS SUMMARY | 2023-10-17 20:33 | External Medical Summary | Summary of Care ---
Author Name Unknown Organization [facility] Address [address] [place] [address] Phone [phone] Care Team Providers Care Cryptologic Technician Technical Name Role Phone Jennie RIVAS MD, Asuncion Celeste Primary Care Provider [phone] Reason for Visit * Reason Comments eRx-Medication Refill Encounter Details Date Type Department Care Team (Late st Contact Info) Description 07/10/2023 Refill Family Practice [facility] 200 [facility] [place] [address] Asuncion Schneider III, MD 200 [facility] [address] COPD, severity to be determined (HCC) Allergies [...] As directed 1 Each 0 07/20/2023 Active Albuterol Sulfate (2.5 MG/3ML) 0.083% Inhalation Nebulization Solution (Proventil) Inhale 1 Vial via nebulizer every 6 hours as needed for Wheezing. 300 mL 11 08/01/2023 Active Ipratropium [place] 0.02 % Inhalation Solution (Atrovent) Inhale 2.5 mL via nebulizer in the morning and 2.5 mL at noon and 2.5 mL in the evening and 2.5 mL before bedtime. 300 mL 12 08/01/2023 Active Ipratropium-Albute rol 0.5-2.5 (3) MG/3ML Inhalation Solution (Duoneb)Indication s:COPD, severity to be determined (HCC) INHALE 3 ML VIA NEBULIZER 4 TIMES A DAY 360 mL 3 11/09/2022 Discontinued Hospital, Clinic, or Other Facility Administered [...] mRNA, LNP-s, No Pre serve, 2-Dose Series ([employer]) 11/10/2020,10/20/2020 Covid-19, Mrna, Lnp-s, Pf, B ivalent, 30 Mcg, IM, 12 yrs and above ([employer]) 06/05/2022 Pneumococcal Conjugate Vacc, 13 Valent (Prevnar) [...] - Asuncion Schneider III, MD - 08/01/2023 4:45 PM ESTSigned Prescriptions: Disp Refills Ipratropium-Albuterol 0.5-2.5 (3) MG/3ML I*360 mL 3 Sig: INHALE3 ML VIA NEBULIZER 4 TIMES A DAYAuthorizing Provider: ASUNCION SCHNEIDER III User: KRISTEL GAUTAM Varenicline Tartrate (Starter) 0.5 MG X 11*1 Each PACK Sig: As directedAuthorizing Provider:JENNIE III, ASUNCION E Albuterol Sulfate (2.5 MG/3ML) 0.083% Inha*300 mL 11 Sig: Inhale 1 Vial via nebulizer every 6 hours as needed for Wheezing.Authorizing Provider: ASUNCION SCHNEIDER III Ipratropium [place] 0.02 % Inhalation Solu*300 mL 12 Sig: Inhale 2.5 mL via nebulizer in the morning and 2.5 mL at noon and 2.5 mL in the evening and 2.5 mL before bedtime.Authorizing Provider: ASUNCION SCHNEIDER III Prescriptions: Disp Refills Varenicline Tartrate (Starter) 0.5 MG X 11*1 Each 0 Sig: USE DIRECTED ON THE PACKAGERefused By: KRISTEL GAUTAM for Refusal: Patient Should Contact Provider First * Addendum Note - Asuncion Schneider III, MD - 08/01/2023 4:45 PM ESTAddended by: ASUNCION SCHNEIDER on: 08/01/2023 04:45 PM Modules accepted: Orders * Addendum Note - Margi Renner RP - 08/01/2023 4:40 PM ESTAddended by: MARGI RENNER on: 08/01/2023 04:40 PM Modules accepted: Orders * Telephone Encounter - Margi Renner RPh - 08/01/2023 4:39 PM EST Please approve if agreeable Pending Prescriptions: Disp Refills Albuterol Sulfate (2.5 MG/3ML) 0.083% Inh*300 mL 11 Sig: Inhale 1 Vial via nebulizer every 6 hours as needed for Wheezing. Ipratropium [place] 0.02 % Inhalation Deepika*300 mL 12 Sig: Inhale 2.5 mL via nebulizer in the morning and 2.5 mL at noon and 2.5 mL in the evening and 2.5 mL before bedtime. Signed Prescriptions: Disp Refills Ipratropium-Albuterol 0.5-2.5 (3) MG/3ML I*360 mL 3 Sig: INHALE 3 ML VIA NEBULIZER 4 TIMES A DAY Authorizing Provider: ASUNCION SCHNEIDER III Ordering User: KRISTEL GAUTAM Thank you, Margi Renner [facility] Clinical Pharmacist Centralized Clinical Pharmacy Services [facility] 08/01/23 4:39 PM [phone] * Telephone Encounter - Asuncion Schneider III, [...] . Please advise Thank you, Zakia Curran Access Director I Centralized Clinical Pharmacy Services (Formerly Telepharmacy) [...] 07/19/2023 1:15 PM EDT Patient called because [facility] contacted her and they are not carrying this brand anymore and need to speak to PCP for an alternative. Please contact [facility]. * Telephone Encounter - Kristel Gautam RP [...] 09/20/2023 7:40 AM EST Office Visit Family [facility] [address] [place] [address] [place] [address] Alie Abel DO [address] [place] [address] Health Maintenance Due Date Last Done Comments DISCUSS TOBACCO CESSATION (REFER TO SMARTSET #4386) 1940 Alpha-1 Antitrypsin 1958 *ADVANCE DIRECTIVE NOT [...] classified documented in this encounter Care Teams Cryptologic Technician Technical Relationship Specialty Start Date End Date Asuncion Schneider III, MD [address] [facility] [address] PCP - General Family Medicine 09/25/18 documented as of this encounter
--- OUTSIDE RECORDS SUMMARY | 2023-10-17 20:33 | External Medical Summary | Summary of Care ---
Author Name Unknown Organization [facility] Address [address] [place] [address] Phone [phone] Care Team Providers Care Head Of Sales Promotion Name Role Phone Marilyn RIVAS MD, Asuncion Celeste Primary Care Provider [phone] Reason for Visit * Reason Comments eRx-Medication Refill Encounter Details Date Type Department Care Team (Late st Contact Info) Description 07/10/2023 Refill Family Practice [facility] 200 [facility] [place] [address] Asuncion Schneider III, MD 200 [place] [address] COPD, severity to be determined (HCC) Allergies [...] mRNA, LNP-s, No Pre serve, 2-Dose Series ([employer]) 11/10/2020,10/20/2020 Covid-19, Mrna, Lnp-s, Pf, B ivalent, 30 Mcg, IM, 12 yrs and above ([employer]) 06/05/2022 Pneumococcal Conjugate Vacc, 13 Valent (Prevnar) [...] as of this encounter Miscellaneous Notes * Addendum Note - Margi Renner RPh - 08/01/2023 4:40 PM ESTAddended by: MARGI RENNER on: 08/01/2023 04:40 PM Modules accepted: Orders * Telephone Encounter - Margi Renner RPh - 08/01/2023 4:39 PM EST Please approve if agreeable Pending Prescriptions: Disp Refills Albuterol Sulfate (2.5 MG/3ML) 0.083% Inh*300 mL 11 Sig: Inhale 1 Vial via nebulizer every 6 hours as needed for Wheezing. Ipratropium [place] 0.02 % Inhalation Deepika*300 mL 12 Sig: Inhale 2.5 mL via nebulizer in the morning and 2.5 mL at noon and 2.5 mL in the evening and 2.5 mL before bedtime. Signed Prescriptions: Disp Refills Ipratropium-Albuterol 0.5-2.5 (3) MG/3ML I*360 mL 3 Sig: INHALE 3 ML VIA NEBULIZER 4 TIMES A DAY Authorizing Provider: ASUNCION SCHNEIDER III Ordering User: ISRRAEL KRISTELMARIA INES RODRÍGUEZ Thank you, Margi Renner [facility] Clinical Pharmacist Centralized Clinical Pharmacy Services (CCPS) (formerly Telepharmacy) 08/01/23 4:39 PM [phone] * Telephone Encounter - Asuncion Schneider III, [...] . Please advise Thank you, Zakia Curran Laser Engraver I Centralized Clinical Pharmacy Services (Formerly Telepharmacy) [...] 07/19/2023 1:15 PM EDT Patient called because [facility] contacted her and they are not carrying this brand anymore and need to speak to PCP for an alternative. Please contact [facility]. * Telephone Encounter - Kristel Gautam [facility] - 07/11/2023 7:16 AM EDTSigned Prescriptions: Disp [...] EST Office Visit Family Practice [facility] [place] [address] [place], [place] [address] Alie Abel DO [address] [place], [place] [address] Health Maintenance Due Date Last Done Comments DISCUSS TOBACCO CESSATION (REFER TO SMARTSET #5138) 1940 Alpha-1 Antitrypsin 1958 *ADVANCE DIRECTIVE NOT [...] classified documented in this encounter Care Teams Head Of Sales Promotion Relationship Specialty Start Date End Date Asuncion Schneider III, MD [address] [place] [address] PCP - General Family Medicine 09/25/18 documented as of this encounter
--- OUTSIDE RECORDS SUMMARY | 2023-10-17 20:34 | External Medical Summary | Summary of Care ---
Author Name Unknown Organization [facility] Address [address] [place] [address] Phone [phone] Care Team Providers Care Soil Conservationist Name Role Phone Marilyn RIVAS MD, Asuncion Celeste Primary Care Provider [phone] Reason for Visit * Reason Comments eRx-Medication Refill Encounter Details Date Type Department Care Team (Late st Contact Info) Description 07/10/2023 Refill Family Practice [facility] 200 [facility] [place] [address] Asuncion Schneider III, MD 200 [place] [address] COPD, severity to be determined (HCC) Allergies Active Allergy Reactions Criticality Noted Date Comments Sulfa Antibiotics 04/03/2013 Generalized uticaria. documented as of this encounter (statuses as of 07/20/2023) Medications Medication Sig Dispensed Refills Start Date [...] A DAY 360 mL 3 07/11/2023 Active Ipratropium-Albute rol 0.5-2.5 (3) MG/3ML Inhalation [...] as of this encounter (statuses as of 07/20/2023) Active Problems Problem Noted Date Diagnosed Date [...] as of this encounter (statuses as of 07/20/2023) Resolved Problems Problem Noted Date Diagnosed Date [...] as of this encounter (statuses as of 07/20/2023) Immunizations Name Administration Dates Next Due COVID-19 mRNA, LNP-s, No Pre serve, 2-Dose Series ([employer]) 11/10/2020,10/20/2020 Covid-19, Mrna, Lnp-s, Pf, B ivalent, [...] encounter Miscellaneous Notes * Telephone Encounter - Aishwarya Dias OSA - 07/19/2023 1:15 PM EDT Patient called because [facility] contacted her and they are not carrying this brand anymore and need to speak to PCP for an alternative. Please contact [facility]. * Telephone Encounter - Kristel Gautam [facility] - 07/11/2023 7:16 AM EDTSigned Prescriptions: Disp Refills Ipratropium-Albuterol 0.5-2.5 (3) MG/3ML I*360 mL 3 Sig: INHALE 3 ML VIA NEBULIZER 4 TIMES A DAYAuthorizing Provider: ASUNCION SCHNEIDER III User: KRISTEL GAUTAMRefused Prescriptions: Disp Refills Varenicline Tartrate (Starter) 0.5 MG X 11*1 Each 0 Sig: USE DIRECTED ON THE PACKAGERefused By: KRISTEL GAUTAM for Refusal:Patient Should Contact Provider First documented in this encounter Plan of Treatment Upcoming Encounters Date Type Department Care Team (Late st Contact Info) Description 09/20/2023 7:40 AM EST Office Visit Family Practice [facility] [place] [address] [place], [place] [address] Alie Abel, [address] [place] [address] Health Maintenance Due Date Last Done Comments DISCUSS TOBACCO CESSATION (REFER TO SMARTSET #6945) 1940 Alpha-1 Antitrypsin 1958 *ADVANCE DIRECTIVE NOT [...] classified documented in this encounter Care Teams Soil Conservationist Relationship Specialty Start Date End Date Asuncion Schneider III, MD 200 [facility] [place] [address] PCP - General Family Medicine 09/25/18 documented as of this encounter
--- OUTSIDE RECORDS SUMMARY | 2023-10-17 20:34 | External Medical Summary | Summary of Care ---
Author Name Unknown Organization [facility] Address [address] [place] [address] Phone [phone] Care Team Providers Care Criminal Legal Assistant Name Role Phone Marilyn RIVAS MD, John E Primary Care Provider [phone] Reason for Visit * Reason Comments eRx-Medication Refill Encounter Details Date Type Department Care Team Description 05/16/2023 Refill Family Practice [facility] [place] [address] Tom Sanders III, MD [facility] [address] Unspecified asthma, uncomplicated Allergies Active Allergy Reactions Severity Noted Date Comments Sulfa Antibiotics 04/03/2013 Generalized uticaria. documented as of this encounter (statuses as of 05/17/2023) Medications Medication Sig Dispensed Refills Start Date End Date Status Ipratropium-Albuter ol 0.5-2.5 (3) MG/3ML Inhalation Solution (Duoneb)Indications :COPD, severity to be determined (HCC) INHALE 3 ML VIA NEBULIZER 4 TIMES A DAY 360 mL 3 11/09/2022 Active predniSONE 20 MG Oral Tablet (Deltasone) [...] 01/10/2023 Active Atenolol 50 MG Oral Tablet (Tenormin)Indicatio ns:HTN, goal below 140/90 TAKE 1 TABLET BY MOUTH EVERY DAY IN THE MORNING 90 Tablet 1 05/07/2023 Active Triamterene-HCTZ 37.5-25 MG Oral Capsule (Dyazide)Indication s:HTN, goal below 140/90 TAKE 1 CAPSULE BY MOUTH EVERY DAY IN THE MORNING 90 Capsule 1 05/07/2023 Active Anoro Ellipta 62.5-25 MCG/ACT Inhalation Aerosol Powder Breath Activated (umeclidinium-vilan terol) INHALE 1 PUFF BY MOUTH EVERY DAY 180 Each 3 05/14/2023 Active Hospital, Clinic, or Other Facility Administered Medication Ordered Dose Route Frequency Start Date End Date Status albuterol (PROVENTIL HFA) inhaler 4 PuffIndications:Chronic obstructive pulmonary disease, unspecified COPD type (HCC) 4 Puff IN Q4H PRN 10/04/2018 Active albuterol sulfate (PROVENTIL) (2.5 MG/3ML) 0.083% inhalation solution 2.5 mgIndications:COPD exacerbation (HCC) 2.5 mg NEBULIZER Q4H PRN 05/09/2019 Active documented as of this encounter (statuses as of 05/17/2023) Active Problems Problem Noted Date COPD, group C, by GOLD 2017 classificati on 05/25/2020 Overview: Per COPD GOLD Classification Chronic bronchitis 10/01/2019 Moderate persistent asthma with exacerba tion 06/03/2019 HTN, goal below 140/90 02/21/2007 ADVANCE DIRECTIVE INFORMATION 08/14/2005 Overview: Yes, Patient instructed to provide copy of advance directive for provider to review and to be scanned into Electronic Medical Record documented as of this encounter (statuses as of 05/17/2023) Resolved Problems Problem Noted Date Resolved Date Current moderate episode of major depressive disorder without prior episode 03/24/2021 03/24/2021 COPD, group B, by GOLD 2017 classification 10/0105/27/2020 Overview: Per COPD GOLD Classification COPD, group C, by GOLD 2017 classification 06/3001/29/2020 Overview: Per COPD GOLD Classification COPD, mild 11/18/2018 06/03/2019 COPD exacerbation 09/25/2018 08/28/2019 Overview: acute documented as of this encounter (statuses as of 05/17/2023) Immunizations Name Administration Dates Next Due COVID-19 mRNA, LNP-s, No Pre serve, 2-Dose Series (Pfizer) 11/10/2020,10/20/2020 Covid-19, Mrna, Lnp-s, Pf, B ivalent, 30 Mcg, IM, 12 yrs and above (Pfizer) 06/05/2022 Pneumococcal Conjugate Vacc, 13 Valent (Prevnar) 08/20/2015 Pneumococcal Polysaccharide PPV23 (Pneumovax) 07/16/2006 Seasonal Influenza, PF, 6 mo ns & Above, IM , (Flulaval) 05/30/2020,05/28/2019,06/13/2018 Seasonal Influenza, Quadriva lent Hd (Fluzone [...] pur e alcohol) 8 beers per week Food Insecurity Answer Date Recorded Within the past 12 months, y ou worried that your food would run out before you got money to buy more. Never true 07/12/2020 Within the past 12 months, t he food you bought just didn't last and you didn't have money to get more. Never true 07/12/2020 Sex Assigned at Date Recorded Not on file Job Start Date Occupation Industry Not on file Not on file Not on file documented as of this encounter Miscellaneous Notes * Telephone Encounter - Te Galeana RPh - 05/17/2023 11:38 AM EDTRefused Prescriptions: Disp Refills Montelukast Sodium 10 MG Oral Tablet (Sing*90 Tab*3 Sig: TAKE 1TABLET BY MOUTH EVERY DAY IN THE EVENINGRefused By: TE GALEANA for Refusal: Refill Not Appropriate documented in this encounter Plan of Treatment Upcoming Encounters Date Type Specialty Care Team Description 09/20/2023 Office Visit Family Medicine Alie Abel, DO 200 [facility] [place] [address] Health Maintenance Due Date Last Done Comments DISCUSS TOBACCO CESSATION (REFER TO SMARTSET #6144) 1940 Alpha-1 Antitrypsin 1958 *ADVANCE DIRECTIVE NOT ON FILE 05/30/2020 Depression Screening, Annual for Pts 12 and Over 07/12/2021 07/12/2020 DXA Scan 12/28/2021 12/28/2014 DTaP,Tdap,and Td Vaccines (2 - Td or Tdap) 04/16/2023 04/16/2013 Influenza Vaccine (FLU shot) (#1) 2023 05/26/2021, 05/30/2020, 05/28/2019, Additional history exists GFR 09/12/2023 09/12/2022, 06/17, 03/29/2021, Additional history exists O2 ASSESSMENT COMPLETED IN PAST YEAR FOR COPD 03/12/2024 03/12/2023 Albumin/Creatinine Ratio 03/12/2026 03/12/2023 Pneumococcal Vaccine: 65+ Years Completed 08/20/2015, 07/16/2006 Zoster Vaccines Completed 05/26/2019, 10/2018, 10/14/2008 COLONOSCOPY-EVERY 3 YRS AGES 18-100 Discontinued 04/15/2020, 04/15/2020, 10/19/2016, Additional history exists COVID-19 Vaccine Completed 06/05/2022, , 06/10/2021, Additional history exists GARDASIL-HPV IMMUNIZATION SERIES Aged [...] as of this encounter Visit Diagnoses Diagnosis Unspecified asthma, uncomplicated documented in this encounter Care Teams Criminal Legal Assistant Relationship Specialty Start Date End Date Tom Sanders III, MD [address] [place] [address] [place] [address] PCP - General Family Medicine 09/25/18 documented as of this encounter
--- OUTSIDE RECORDS SUMMARY | 2023-10-17 20:34 | External Medical Summary | Summary of Care ---
Author Name Unknown Organization [facility] Address [address] [place] [address] Phone [phone] Care Team Providers Care City Engineer Name Role Phone Marilyn RIVAS MD, Asuncion Celeste Primary Care Provider [phone] Reason for Visit * Reason Comments eRx-Medication Refill Encounter Details Date Type Department Care Team (Late st Contact Info) Description 07/10/2023 Refill Family Practice [facility] 200 [facility] [place] [address] Asuncion Schneider III, MD 200 [place] [address] COPD, severity to be determined (HCC) Allergies Active Allergy Reactions Criticality Noted Date Comments Sulfa Antibiotics 04/03/2013 Generalized uticaria. documented as of this encounter (statuses as of 07/19/2023) Medications Medication Sig Dispensed Refills Start Date [...] as of this encounter (statuses as of 07/19/2023) Active Problems Problem Noted Date Diagnosed Date [...] as of this encounter (statuses as of 07/19/2023) Resolved Problems Problem Noted Date Diagnosed Date [...] as of this encounter (statuses as of 07/19/2023) Immunizations Name Administration Dates Next Due COVID-19 mRNA, LNP-s, No Pre serve, 2-Dose Series ([employer]) 11/10/2020,10/20/2020 Covid-19, Mrna, Lnp-s, Pf, B ivalent, [...] pur e alcohol) 8 beers per week Sex and Gender Information Value Date Recorded Sex Assigned at Not on file Gender Identity Not on file Sexual Orientation Not on file Job Start Date Occupation Industry Not on file Not on file Not on file documented as of this encounter Miscellaneous Notes * Telephone Encounter - Aishwarya Dias OSA - 07/19/2023 1:15 PM EDT Patient called because [facility] contacted her and they are not carrying this brand anymore and need to speak to PCP for an alternative. Please contact [facility]. * Telephone Encounter - Kristel Gautam RPh [...] EST Office Visit Family Practice [facility] [place] [address] [place] [address] Alie Abel, DO 200 [facility] [place] [address] Health Maintenance Due Date Last Done Comments DISCUSS TOBACCO CESSATION (REFER TO SMARTSET #[id number]) 1940 Alpha-1 Antitrypsin 1958 *ADVANCE DIRECTIVE NOT [...] classified documented in this encounter Care Teams City Engineer Relationship Specialty Start Date End Date Asuncion Schneider III, MD 200 [facility] [place] [address] PCP - General Family Medicine 09/25/18 documented as of this encounter
--- OUTSIDE RECORDS SUMMARY | 2023-10-17 20:34 | External Medical Summary | Summary of Care ---
Author Name Unknown Organization [facility] Address [address] [place] [address] Phone [phone] Care Team Providers Care Chief Specialist Leed Name Role Phone Marilyn RIVAS MD, John E Primary Care Provider [phone] Reason for Visit * Reason Comments eRx-Medication Refill Encounter Details Date Type Department Care Team Description 05/16/2023 Refill Family Practice [facility] [place] [address] Tom Sanders III, MD [facility] [address] Unspecified asthma, uncomplicated Allergies Active Allergy Reactions [...] encounter Miscellaneous Notes * Telephone Encounter - Yessica Perry CPhT - 05/17/2023 1:49 PM EDT Patient requesting refills for Montelukast Sodium 10 MG . Upon chart review, medication is listed as discontinued, with discontinuation reason as "med list clean up". Please advise if you wish to continue this therapy for the patient. Thank you, Yessica Perry, Wildlife Rehabilitator I [facility] (Formerly Telepharmacy) 05/17/2023, 1:49 PM * Telephone Encounter - Te Galeana RPh - 05/17/2023 11:38 AM EDTRefused Prescriptions: Disp Refills Montelukast Sodium 10 MG Oral Tablet (Sing*90 Tab*3 Sig: TAKE 1TABLET BY MOUTH EVERY DAY IN THE EVENINGRefused By: TE GALEANA for Refusal: Refill Not Appropriate documented in this encounter Plan of Treatment Upcoming Encounters Date Type Specialty Care Team Description 09/20/2023 Office Visit Family Medicine Alie Abel, [address] [place] [address] Health Maintenance Due Date Last Done Comments DISCUSS TOBACCO CESSATION (REFER TO SMARTSET #[id number]) 1940 Alpha-1 Antitrypsin 1958 *ADVANCE DIRECTIVE NOT [...] uncomplicated documented in this encounter Care Teams Chief Specialist Leed Relationship Specialty Start Date End Date Tom Sanders III, MD 200 [facility] [place] [address] PCP - General Family Medicine 09/25/18 documented as of this encounter
--- OUTSIDE RECORDS SUMMARY | 2023-10-17 20:34 | External Medical Summary | Summary of Care ---
Author Name Unknown Organization [facility] Address [address] [place] [address] Phone [phone] Care Team Providers Care Railroad Mechanic Name Role Phone Marilyn RIVAS MD, Asuncion Celeste Primary Care Provider [phone] Reason for Visit * Reason Comments eRx-Medication Refill Encounter Details Date Type Department Care Team (Late st Contact Info) Description 07/10/2023 Refill Family Practice [facility] 200 [facility] [place] [address] Asuncion Schneider III, MD 200 [facility] [place] [address] COPD, severity to be determined (HCC) Allergies Active Allergy Reactions Criticality Noted Date Comments Sulfa Antibiotics 04/03/2013 Generalized uticaria. documented as of this encounter (statuses as of 07/11/2023) Medications Medication Sig Dispensed Refills Start Date [...] as of this encounter (statuses as of 07/11/2023) Active Problems Problem Noted Date Diagnosed Date [...] as of this encounter (statuses as of 07/11/2023) Resolved Problems Problem Noted Date Diagnosed Date [...] as of this encounter (statuses as of 07/11/2023) Immunizations Name Administration Dates Next Due COVID-19 mRNA, LNP-s, No Pre serve, 2-Dose Series ([employer]) 11/10/2020,10/20/2020 Covid-19, Mrna, Lnp-s, Pf, B ivalent, [...] encounter Miscellaneous Notes * Telephone Encounter - Kristel Gautam RPh - 07/11/2023 7:16 AM EDTSigned Prescriptions: Disp Refills Ipratropium-Albuterol 0.5-2.5 (3) MG/3ML I*360 mL 3 Sig: INHALE3 ML VIA NEBULIZER 4 TIMES A DAYAuthorizing Provider: SAUNCION SCHNEIDER III User: KRISTEL GAUTAM Prescriptions: Disp Refills Varenicline Tartrate (Starter) 0.5 MG X 11*1 Each 0 Sig: USE DIRECTED ON THE PACKAGERefused By: KRISTEL GAUTAM for Refusal:Patient Should Contact Provider First documented in this encounter Plan of Treatment Upcoming Encounters Date Type Department Care Team (Late st Contact Info) Description 09/20/2023 7:40 AM EST Office Visit Family Practice [facility] [address] [place] [address] Alie Abel, [address] [place] [address] Health Maintenance Due Date Last Done [...] classified documented in this encounter Care Teams Railroad Mechanic Relationship Specialty Start Date End Date Asuncion Schneider III, MD [address] [place] [address] PCP - General Family Medicine 09/25/18 documented as of this encounter
--- OUTSIDE RECORDS SUMMARY | 2023-10-17 20:34 | External Medical Summary | Summary of Care ---
Author Name Unknown Organization [facility] Address [address] [place] [address] Phone [phone] Care Team Providers Care Box Stamper Name Role Phone Marilyn RIVAS MD, John E Primary Care Provider [phone] Reason for Visit * Reason Comments eRx-Medication Refill Encounter Details Date Type Department Care Team Description 05/07/2023 Refill Family Practice [facility] 200 [facility] [place] [address] Asuncion Schneider III, MD [facility] [address] HTN, goal below 140/90 Allergies Active Allergy Reactions Severity Noted Date Comments Sulfa Antibiotics 04/03/2013 Generalized uticaria. documented as of this encounter (statuses as of 05/07/2023) Medications Medication Sig Dispensed Refills Start Date End Date Status Anoro Ellipta 62.5-25 MCG/ACT Inhalation Aerosol Powder Breath Activated (umeclidinium-vi lanterol) INHALE 1 PUFF BY MOUTH EVERY DAY 180 Each 1 11/09/2022 Active Ipratropium-Albu terol 0.5-2.5 (3) MG/3ML Inhalation Solution (Duoneb)Indicati ons:COPD, severity to be determined (HCC) INHALE 3 [...] 01/10/2023 Active Atenolol 50 MG Oral Tablet (Tenormin)Indica tions:HTN, goal below 140/90 TAKE 1 TABLET BY MOUTH EVERY DAY IN THE MORNING 90 Tablet 1 05/07/2023 Active Triamterene-HCTZ 37.5-25 MG Oral Capsule (Dyazide)Indicat ions:HTN, goal below 140/90 TAKE 1 CAPSULE BY MOUTH EVERY DAY IN THE MORNING 90 Capsule 1 05/07/2023 Active Atenolol 50 MG Oral Tablet (Tenormin)Indica tions:HTN, goal below 140/90 Take 1 Tablet by mouth in the morning. 90 Tablet 1 11/02/2022 3 Discontinued Triamterene-HCTZ 37.5-25 MG Oral Capsule (Dyazide)Indicat ions:HTN, goal below 140/90 TAKE 1 CAPSULE BY MOUTH EVERY MORNING 90 Capsule 1 11/09/2022 3 Discontinued Hospital, Clinic, or Other [...] as of this encounter (statuses as of 05/07/2023) Active Problems Problem Noted Date COPD, group [...] as of this encounter (statuses as of 05/07/2023) Resolved Problems Problem Noted Date Resolved Date Current moderate episode of major depressive disorder without prior episode 03/24/2021 03/24/2021 COPD, group B, by GOLD 2017 classification 10/0105/27/2020 Overview: Per COPD GOLD Classification COPD, group C, by GOLD 2017 classification 06/3001/29/2020 Overview: Per COPD GOLD Classification COPD, mild 11/18/2018 06/03/2019 COPD exacerbation 09/25/2018 08/28/2019 Overview: acute documented as of this encounter (statuses as of 05/07/2023) Immunizations Name Administration Dates Next Due COVID-19 [...] encounter Miscellaneous Notes * Telephone Encounter - Meena Cheng RPh - 05/07/2023 1:26 PM EDTSigned Prescriptions: Disp Refills Atenolol 50 MG Oral Tablet (Tenormin) 90 Tab*1 Sig: TAKE 1 TABLET BY MOUTH EVERY DAY IN THE MORNINGAuthorizing Provider: ASUNCION SCHNEIDER III User: MEENA CHENG Triamterene-HCTZ 37.5-25 MG Oral Capsule (*90 Cap*1 Sig: TAKE 1 CAPSULE BY MOUTH EVERY DAY IN THE M ORNINGAuthorizing Provider: ASUNCION SCHNEIDER III User: MEENA CHENG documented in this encounter Plan of Treatment Upcoming Encounters Date Type Specialty Care Team Description 09/20/2023 Office Visit Family Medicine Alie Abel, [address] [place] [address] Health Maintenance Due Date Last Done Comments DISCUSS TOBACCO CESSATION (REFER TO SMARTSET #2838) 1940 Alpha-1 Antitrypsin 1958 *ADVANCE DIRECTIVE NOT [...] hypertension documented in this encounter Care Teams Box Stamper Relationship Specialty Start Date End Date Asuncion Schneider III, MD 200 [place] [address] PCP - General Family Medicine 09/25/18 documented as of this encounter
--- OUTSIDE RECORDS SUMMARY | 2023-10-17 20:34 | External Medical Summary | Summary of Care ---
Author Name Unknown Organization [facility] Address [address] [place] [address] Phone [phone] Care Team Providers Care Confidential Investigator Name Role Phone Marilyn RIVAS MD, John E Primary Care Provider [phone] Reason for Visit * Reason Comments eRx-Medication Refill Encounter Details Date Type Department Care Team Description 05/16/2023 Refill Family Practice [facility] 200 [facility] [place] [address] Tom Sanders III, MD [facility] [address] Unspecified asthma, uncomplicated Allergies Active Allergy Reactions [...] for the patient. Thank you, Yessica Perry, Front End Loader Driver I Centralized Clinical Pharmacy Services (Formerly Telepharmacy) [...] Family Medicine Alie Abel, [address] [place] [address] Health Maintenance Due Date Last Done Comments DISCUSS TOBACCO CESSATION (REFER TO SMARTSET #4736) 1940 Alpha-1 Antitrypsin 1958 *ADVANCE DIRECTIVE NOT [...] uncomplicated documented in this encounter Care Teams Confidential Investigator Relationship Specialty Start Date End Date Tom Sanders III, MD 200 [facility] [place] [address] PCP - General Family Medicine 09/25/18 documented as of this encounter
--- OUTSIDE RECORDS SUMMARY | 2023-10-17 20:34 | External Medical Summary | Summary of Care ---
Author Name Unknown Organization [facility] Address [address] [place] [address] Phone [phone] Care Team Providers Care Medical Lab Scientist Name Role Phone Marilyn RIVAS MD, Asuncion Celeste Primary Care Provider [phone] Reason for Visit * Reason Comments eRx-Medication Refill Encounter Details Date Type Department Care Team (Late st Contact Info) Description 07/10/2023 Refill Family Practice [facility] 200 [facility] [place] [address] Asuncion Schneider III, MD 200 [place] [address] COPD, severity to be determined (HCC) Allergies [...] mRNA, LNP-s, No Pre serve, 2-Dose Series ([employer]) 11/10/2020,10/20/2020 Covid-19, Mrna, Lnp-s, Pf, B ivalent, 30 Mcg, IM, 12 yrs and above ([employer]) 06/05/2022 Pneumococcal Conjugate Vacc, 13 Valent (Prevnar) [...] encounter Miscellaneous Notes * Addendum Note - Asuncion Schneider III, MD - 07/20/2023 4:20 PM EDTAddended by: ASUNCION SCHNEIDER on: 07/20/2023 04:20 PM Modules accepted: Orders * Telephone Encounter - Asuncion Schneider III, MD - 07/20/2023 4:18 PM EDT Call [facility] ? Alternative? * Telephone Encounter - Aishwarya Dias OSA - 07/19/2023 1:15 PM EDT Patient called because [facility] contacted her and they are not carrying this brand anymore and need to speak to PCP for an alternative. Please contact [facility]. * Telephone Encounter - Kristel Gautam [facility] - 07/11/2023 7:16 AM EDTSigned Prescriptions: Disp Refills Ipratropium-Albuterol 0.5-2.5 (3) MG/3ML I*360 mL 3 Sig: INHALE 3 ML VIA NEBULIZER 4 TIMES A DAYAuthorizing Provider: ASUNCION SCHNEIDER III User: KRISTEL GAUTAMRefmandie Prescriptions: Disp Refills Varenicline Tartrate (Starter) 0.5 MG X 11*1 Each 0 Sig: USE DIRECTED ON THE PACKAGERefused By: KRISTEL GAUTAMason for Refusal:Patient Should Contact Provider First documented in this encounter Plan of Treatment Upcoming Encounters Date Type Department Care Team (Late st Contact Info) Description 09/20/2023 7:40 AM EST Office Visit Family Practice [facility] 200 [facility] [place] [address] Alie Abel DO 200 [facility] [place] [address] Health Maintenance Due Date Last Done Comments DISCUSS TOBACCO CESSATION (REFER TO SMARTSET #3291) 1940 Alpha-1 Antitrypsin 1958 *ADVANCE DIRECTIVE NOT [...] classified documented in this encounter Care Teams Medical Lab Scientist Relationship Specialty Start Date End Date Asuncion Schneider III, MD [address] [place] [address] PCP - General Family Medicine 09/25/18 documented as of this encounter
--- OUTSIDE RECORDS SUMMARY | 2023-10-17 20:34 | External Medical Summary | Summary of Care ---
Author Name Unknown Organization [facility] Address [address] [place] [address] Phone [phone] Care Team Providers Care Senior Sourcing Manager Name Role Phone Marilyn RIVAS MD, Tom Celeste Primary Care Provider [phone] Reason for Visit * Reason Comments Physical-Exam Encounter Details Date Type Department Care Team Description 06/22/2023 Office Visit Family Practice [facility] [place] [id number] Maritza Smith MD 200 [facility], [place], [place] [address] Pre-op evaluation*; Age-related cataract of both eyes, unspecified age-related cataract type; COPD, group C, by GOLD 2017 classification ([facility]); HTN, goal below 140/90 Allergies Active Allergy Reactions Severity Noted Date Comments Sulfa Antibiotics 04/03/2013 Generalized uticaria. documented as of this encounter (statuses as of 06/22/2023) Medications Medication Sig Dispensed Refills Start Date End Date Status Ipratropium-Albuter ol 0.5-2.5 (3) MG/3ML Inhalation Solution (Duoneb)Indications :COPD, severity to be determined ([facility]) INHALE 3 ML VIA NEBULIZER 4 TIMES [...] Active Montelukast Sodium 10 MG Oral Tablet (Singulair)Indicati ons:Unspecified asthma, uncomplicated TAKE 1 TABLET BY MOUTH EVERY DAY IN THE EVENING 90 Tablet 3 05/29/2023 Active Benzonatate 100 MG Oral Capsule (Tessalon Perles) Take 1 Capsule by mouth 3 times a day as needed for Cough. 30 Capsule 1 06/22/2023 Active Benzonatate 100 MG Oral Capsule (Tessalon Perles) Take 1 Capsule by mouth 3 times a day as needed. 0 05/26/2023 3 Discontinue d(Refill) Hospital, Clinic, or Other Facility Administered Medication Ordered Dose Route Frequency Start Date End Date Status albuterol (PROVENTIL HFA) inhaler 4 PuffIndications:Chronic obstructive pulmonary disease, unspecified COPD type (HCC) 4 Puff IN Q4H PRN 10/04/2018 Active albuterol sulfate (PROVENTIL) (2.5 MG/3ML) 0.083% inhalation solution 2.5 mgIndications:COPD exacerbation (HCC) 2.5 mg NEBULIZER Q4H PRN 05/09/2019 Active documented as of this encounter (statuses as of 06/22/2023) Active Problems Problem Noted Date COPD, group [...] as of this encounter (statuses as of 06/22/2023) Resolved Problems Problem Noted Date Resolved Date Current moderate episode of major depressive disorder without prior episode 03/24/2021 03/24/2021 COPD, group B, by GOLD 2017 classification 10/0105/27/2020 Overview: Per COPD GOLD Classification COPD, group C, by GOLD 2017 classification 06/3001/29/2020 Overview: Per COPD GOLD Classification COPD, mild 11/18/2018 06/03/2019 COPD exacerbation 09/25/2018 08/28/2019 Overview: acute documented as of this encounter (statuses as of 06/22/2023) Immunizations Name Administration Dates Next Due COVID-19 mRNA, LNP-s, No Pre serve, 2-Dose Series (VSS Monitoring) 11/10/2020,10/20/2020 Covid-19, Mrna, Lnp-s, Pf, B ivalent, 30 Mcg, IM, 12 yrs and above (VSS Monitoring) 06/05/2022 Pneumococcal Conjugate Vacc, 13 Valent (Prevnar) [...] Sign Reading Time Taken Comments Blood Pressure 120/70 06/22/2023 10:42 AM EDT Pulse 62 06/22/2023 10:42 AM EDT Temperature 35.9 C (96.7 F) 06/22/2023 10:42 AM E DT Respiratory Rate 16 06/22/2023 10:42 AM EDT Oxygen Saturation 98% 06/22/2023 10:42 AM EDT Inhaled Oxygen Concentration - - Weight 80.7 kg (178 lb) 06/22/2023 10:42 AM EDT Height - - Body Mass Index 27.06 08/16/2022 9:22 AM EST documented in this encounter Progress Notes * Maritza Smith MD - 06/22/2023 10:29 AM EDT Images from the original note were not included. Pre-Operative Medical Evaluation Procedure Information Type of Surgery: Cataract removal Referring Physician / Surgeon: Dr. Ann Date of procedure: 06/28/23 (left), 07/17/23 (right) Brief History of Present Illness: Patient has no concerns. No changes since last visit with PCP. She denies chest pain, shortness of breath, dizziness/lightheadedness, syncope, edema, headache, or easy bleeding or bruising. Medical History Problem List: Current moderate episode of major depressive disorder without prior episode ([facility]) (03/24/2021) COPD, group C, by GOLD 2017 classification ([facility]) (05/25/2020) Chronic bronchitis ([facility]) (10/01/2019) Moderate persistent asthma with exacerbation (06/03/2019) HTN, goal below 140/90 (02/21/2007) Current Medications Benzonatate 100 MG Oral Capsule (Tessalon Perles), 100 mg, Oral, TID PRN Montelukast Sodium 10 MG Oral Tablet (Singulair), TAKE 1 TABLET BY MOUTH EVERY DAY IN THE EVENING Anoro Ellipta 62.5-25 MCG/ACT Inhalation Aerosol Powder Breath Activated (umeclidinium-vilanterol),INHALE 1 PUFF BY MOUTH EVERY DAY Atenolol 50 MG Oral Tablet (Tenormin), TAKE 1 TABLET BY MOUTH EVERY DAY IN THE MORNING Triamterene-HCTZ 37.5-25 MG Oral Capsule (Dyazide), TAKE 1 CAPSULE BY MOUTH EVERY DAY IN THE MORNING Albuterol Sulfate HFA 108 (90 Base) MCG/ACT Inhalation Aerosol Solution, 2 Puff, Inhalation, Q6H PRN Azithromycin 250 MG Oral Tablet (Zithromax), TAKE 2 TABLETS BY MOUTH TODAY, THEN TAKE 1 TABLET DAILY FOR 4 DAYS predniSONE 20 MG Oral Tablet (Deltasone), 40 mg, Oral, Daily(AM) Ipratropium-Albuterol 0.5-2.5 (3) MG/3ML Inhalation Solution (Duoneb), INHALE 3 ML VIA NEBULIZER 4 TIMES A DAY albuterol sulfate (PROVENTIL) (2.5 MG/3ML) 0.083% inhalation solution 2.5 mg, 2.5 mg albuterol (PROVENTIL HFA) inhaler 4 Puff, 4 Puff Allergies: Sulfa antibiotics Past Medical History: has a past medical history of Benign neoplasm of colon (08/10/10), COPD exacerbation ([facility]) (09/25/2018), and NO KNOWN PROBLEMS. Past Surgical History: has a past surgical history that includes removal of appendix; mammogram - bilateral (07/30/2007); Mammogram Screening Bilateral (04/15/2009); Colonoscopy w/ Biopsy ([facility]) (08/10/2010); Mammogram Screening Bilateral (07/19/2010); Colonoscopy, Diagnostic ([facility]) (10/16/2013); Colonoscopy, Diagnostic (Rectum) (10/19/2016); Colonoscopy, Diagnostic (Rectum) (10/19/2016); and Colonoscopy, Diagnostic ([facility]) (04/15/2020). Social History: reports that she has been smoking cigarettes. She has a 12.50 pack-year smoking history. She has never used smokeless tobacco. She reports current alcohol use. She reports that she does not use drugs. Family History: family history includes Cancer in her mother; Diabetes in her brother; Eye Problems in her brother;Stroke in her father. Anesthesia History Type of Anesthesia: General Endotracheal Anesthesia reaction: No History of surgical complications: None Personal history of venous thromboembolic disease: None Physical Exam Vitals: 06/22/23 1042 Temp: 35.9 C (96.7 F) Pulse: 62 Resp: 16 SpO2: 98% BP: 120/70 General: Well-appearing, no acute distress HENT: Head is normocephalic and atraumatic, no pharyngeal erythema, nose normal, ear canals normal and tympanic membranes clear bilaterally Eyes: No conjunctival injection, no scleral icterus, EOMI, PERRLA Cardiovascular: Regular rate and rhythm, no murmur Respiratory: Good respiratory effort, breath sounds equal and clear to auscultation bilaterally Abdomen: Soft, non-distended, non-tender, normoactive bowel sounds Extremities: No edema Skin: Warm and dry Neurological: Alert and oriented, no focal deficits noted Psychiatric: Appropriate mood and affect Labs reviewed and are significant for: N/A EKG by my review is significant for: N/A Surgical Risk Scoring Revised Cardiac Risk Index (RCRI) High-risk type of surgery (examples include vascular and any open intraperitoneal or intrathoracic procedures): 0=No History of ischemic heart disease (history of myocardial infarction or positive exercise test, current compliant of chest pain considered to be secondary to myocardia ischemia, use of nitrate therapy, or ECG with pathological Q waves; do not count prior coronary revascularization procedure unless one of the other criteria for ischemic heart disease is present): 0=No History of heart failure: 0=No History of cerebrovascular disease: 0=No Diabetes mellitus requiring treatment with insulin: 0=No Preoperative serum creatinine >2.0 mg/dL (177 micromol/L): 0=No Pt has revised cardiac index score of: No Risk Factors- 0.4% (95% CI: 0.1-0.8) Screening for Obstructive Sleep Apnea (STOP-BANG) Do you Snore loudly? 0=No Do you often feel Tired, Fatigued, or Sleep? 0=No Has anyone Observed you Stop Breathing or Choking/Gasping during sleep? 0=No Do you have or are you being treated for High Blood Pressure? 1=Yes BMI over 35? 0=No Age older than 50? 1=Yes Neck size large? (For males - 17 inches or larger, For females - 16 inches or larger) 0=No Male? 0=No Score 0-2:low risk EVAN, 3-4: intermediate risk of EVAN, 5-8: high risk EVAN 1 Assessment and Plan Pre-op evaluation Age-related cataract of both eyes, unspecified age-related cataract type COPD, group C, by GOLD 2017 classification (HCC) Well-controlled. Continue current medication(s). HTN, goal below 140/90 Well-controlled. Continue current medication(s). Functional Assessment They are able to walk up a flight of stairs, walk two blocks at a moderate pace, and do heavy housework like vacuuming. The patient's functional status is good (greater than 4 METS). 1 MET: 4 METs: 4-10 METs: Can take care of self, such as eat, dress or use the toilet. Can walk to block or go up a flight of steps. Can do heavy house work. Surgical Risk Assessment Patient is low medical risk for the listed procedure. Medication adjustments: N/A Additional consults or testing: N/A documented in this encounter Nursing Notes * Iris Velásquez LPN - 06/22/2023 10:39 AM EDT Lauren Burris presents for pre-op physical exam. Medications & HM reviewed. Denies any concerns at this time documented in this encounter Plan of Treatment Upcoming Encounters Date Type Specialty Care Team Description 09/20/2023 Office Visit Family Medicine Alie Abel, DO [address] [place] [address] Health Maintenance Due Date Last Done Comments DISCUSS TOBACCO CESSATION (REFER TO SMARTSET #[id number]) 1940 Alpha-1 Antitrypsin 1958 *ADVANCE DIRECTIVE NOT [...] as of this encounter Visit Diagnoses Diagnosis Pre-op evaluation- Primary Preoperative examination, unspecified Age-related cataract of both eyes, unspecified age-related cataract type COPD, group C, by GOLD 2017 classification (HCC) HTN, goal below 140/90 Unspecified essential hypertension documented in this encounter Care Teams Senior Sourcing Manager Relationship Specialty Start Date End Date [place] III, Tom E, MD [address] [place] [address] PCP - General Family Medicine 09/25/18 documented as of this encounter
[2023-10-17] MEDS ORDERED: MONTELUKAST SODIUM 10 MG TABLET PO SCH (21:00)
[2023-10-17] MEDS ORDERED: LABETALOL HCL IV 5 MG/ML 20ML IV PRN (21:57)
[2023-10-17] MEDS ORDERED: ZOLPIDEM TARTRATE 5 MG TAB PO PRN (23:10)
[2023-10-18 07:05] LABS: Basophils % (auto) 1.2 %; Eosinophils # (auto) 0.77 K/uL (0.00-0.50); Hematocrit (blood only) 35.8 % (37.0-47.0); Hemoglobin 12.7 g/dl (12.0-16.0); Immature Granulocytes # (auto) 0.02 K/uL (0.01-0.20); Immature Granulocytes % (auto) 0.2 %; Lymphocytes % (auto) 32.7 %; Mean Corpuscular Hemoglobin 32.3 pg (25.0-34.0); Mean Corpuscular Hgb Conc 35.5 g/dL (32.0-36.0); Mean Corpuscular Volume 91.1 fL (80.0-100.0); Mean Platelet Volume 9.7 fL (9.4-12.4); Monocytes # (auto) 0.77 K/uL (0.11-0.59); Neutrophils # (auto) 4.09 K/uL (1.40-6.50); Neutrophils % (auto) 47.9 %; Platelet Count 320 K/uL (130-400); RDW Coefficient of Variation 12.9 % (11.5-14.5); RDW Standard Deviation 42.9 fL (36.4-46.3); Red Blood Count 3.93 M/uL (4.20-5.40); White Blood Count 8.55 K/ul (4.8-10.8)
[2023-10-18 07:13] LABS: Estimated Average Glucose 111 mg/dl; Hemoglobin A1C 5.5 % (4.5-5.6)
[2023-10-18 07:34] LABS: BUN Creatinine Ratio 18.2 (10-20); Calcium 9.1 mg/dl (8.6-10.3); Creatinine Clr Calc Pharmacy 88.1 ml/min; Est GFR (African American) 101.2 ml/min; Est GFR (Non-African American) 87.4 ml/min; Potassium 3.9 mmol/L (3.5-5.1)
--- NOTE | 2023-10-18 08:39 | Orthopedic Consultation ---
Date of Consultation October 18, 2023 Assessment & Plan (1) Neurogenic claudication due to lumbar spinal stenosis: MRI lumbar spine available for review does demonstrate age-appropriate multilevel lumbar degenerative change. There is impressive stenosis noted mostly at L4-L5. This point she is stable. She is reasonable to discharge home. I will have her follow-up in my office in the next few weeks to review films with her and initiate a course of physical therapy and perhaps interventional pain management. Patient stands agrees to this plan. History of Present Illness Reason for Consultation: Right leg numbness Attending Physician: Eulogio Blake MD History of Present Illness This is a very pleasant 82-year-old female that presents to the emergency room yesterday after undergoing a bout of significant right leg numbness. She states she was driving to [employer]. She had significant numbness in the right lower extremity causing her to mandrel puller. She was able to regain sensation to her leg and came emergency room. Per history she is able to stand and ambulate but does note leg weakness with prolonged standing or walking. She has had no recent physical therapy or lumbar epidural injections or any specific spine treatment. This morning she feels very good she has no numbness tingling in legs. She is a nxious to return home. Allergies Allergy/AdvReac Type Severity Reaction Status Date / Time Sulfa (Sulfonamide Allergy Unknown Rash Verified 07/17/23 10:02 Antibiotics) sulfamethoxazole Allergy Unknown Rash Verified 07/17/23 10:02 [From Bactrim] trimethoprim [From Bactrim] Allergy Unknown Rash Verified 07/17/23 10:02 Home Medications Medication Instructions Recorded Confirmed Type atenolol 50 mg tablet 50 mg PO QAM 09/19/18 10/17/23 History triamterene 37.5 1 tab PO QAM 09/19/18 10/17/23 History mg-hydrochlorothiazide 25 mg capsule inhalational spacing device #1 ea 06/16/19 10/17/23 Rx (Aerochamber Mini) umeclidinium 62.5 mcg-vilanterol 1 puffs inhalation QAM 06/16/19 10/17/23 History 25 mcg/actuation powdr for inhalation (Anoro Ellipta) montelukast 10 mg tablet 10 mg PO QPM #90 tabs 06/07/20 10/17/23 Rx albuterol sulfate 90 mcg/actuation 1 puffs inhalation Q6H PRN 09/16/22 10/17/23 History aerosol inhaler shortness of breath or wheezing varenicline 0.5 mg (11)-1 mg (42) 1 ea PO UD 10/17/23 10/17/23 History tablets in a dose pack Patient History Medical History History of tobacco use 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 Resection strength testing. Sensory is intact to cold light touch lower extremities. Results & Data Vital Signs (Past 12 Hours) Vital Signs Temp Pulse Pulse Resp BP BP Pulse Ox 10/18/23 07:54 36.9 C 69 18 130/64 95 10/18/23 03:20 36.4 C L 63 20 154/77 H 97 10/18/23 01:25 72 165/71 H 10/18/23 00:49 82 185/75 H 10/18/23 00:44 82 18 185/75 H 98 10/18/23 00:30 65 10/17/23 23:23 10/17/23 23:14 65 10/17/23 23:00 63 20 159/72 H 95 10/17/23 22:33 65 18 163/91 H 97 10/17/23 21:50 194/105 H 10/17/23 21:23 62 Pulse Ox O2 Del Method O2 Del Method 10/18/23 07:54 Room Air 10/18/23 03:20 Room Air 10/18/23 01:25 10/18/23 00:49 10/18/23 00:44 Room Air 10/18/23 00:30 10/17/23 23:23 95 Room Air 10/17/23 23:14 10/17/23 23:00 10/17/23 22:33 Room Air 10/17/23 21:50 10/17/23 21:23
[2023-10-18] MEDS ORDERED: TRIAMTERENE/HCTZ 37.5/25MG CAP PO SCH (09:00)
[2023-10-18] MEDS ORDERED: ATENOLOL 50 MG TABLET PO SCH (09:00)
[2023-10-18] MEDS ORDERED: UMECLIDINIUM/VILANTEROL 62.5/25MCG 7 PUFFS/INHALER INH SCH (09:00)
--- NOTE | 2023-10-18 10:59 | Hospitalist Progress Note ---
Date of Service October 18, 2023 Assessment & Plan (1) Right leg weakness: Plan: Admit to telemetry Patient presenting from home with reports of right leg weakness, numbness. Over the past 2 weeks, patient reports numbness and tingling going down the backs of both of her legs and also right hip pain while walking up an incline. Today while driving, patient had an episode of right leg weakness and numbness that lasted for about 10 minutes and self resolved. In the ED, head CT unremarkable, head/neck CTA shows Mild to moderate focal stenosis within the distal left intracranial vertebral artery. Suspect symptoms are due to lumbar radiculopathy however will observe and obtain brain MRI Chronic appearing lumbar spine disease noted on lumbar spine CT, will obtain lumbar spine MRI for follow-up Consider echo and addition of ASA and statin pending brain MRI results (2) Hypertension: Plan: BP elevated, likely situational Will monitor for now until brain MRI results Continue home dose atenolol and triamterene/HCTZ (3) History of tobacco use: Plan: Started Chantix about 2 weeks ago and has been tobacco free (4) Asthma-COPD overlap syndrome: Plan: Chronic, stable, no signs of acute exacerbation Continue home inhalers DVT PROPHYLAXIS SCDs for now Patient seen in collaboration with Dr. Telles. I spent a total of 75 minutes coordinating, documenting, and providing care for this patient excluding time spent in the performance of separately billed services. This included personally reviewing all current laboratories and imaging studies, medication reconciliation, outpatient chart review, and discussion with specialists. Admission and Anticipated Discharge Date Admission Date: October 17, 2023 Subjective 10/18/2023 The patient was seen and examined in telemetry unit in presence of the daughter She was admitted with right leg numbness with history of intermittent bilateral leg numbness and weakness Denies any other symptoms associated with it specially no problem with urine or bowel habit Condition happened to be worse with right leg weakness while driving Following rest for a few minutes the condition resolved Has been having no symptoms this morning and wants to go home Review of Systems Review of Systems: All systems reviewed and are unremarkable except as noted below Physical Exam Physical Exam: Lying in bed comfortably Constitutional: well developed, well nourished and average body habitus; not ill appearing Eyes: PERRL, conjunctivae normal, anicteric sclerae ENMT: external ear and nose normal, oropharynx normal Neck: trachea midline, no thyromegaly Respiratory: no respiratory distress Auscultation: lungs clear to auscultation bilaterally Cardiovascular: Rate/Rhythm: regular rate and regular rhythm; not tachycardic Heart Sounds: normal S1 and normal S2; no murmur Extremities: no edema Gastrointestinal (Abdomen): Inspection/Auscultation: normal bowel sounds; abdomen not distended Percussion/Palpation: abdomen soft; abdomen nontender Musculoskeletal: No acute arthritis in any of the joint Neurologic: normal touch/pain/proprioception and moves all extremities; no focal motor deficits Elevating the legs did not produce any back pain and or radiation of pain on either side Psychiatric: A+Ox3, euthymic affect Lymphatic: no cervical or axillary lymphadenopathy Results & Data Results & Data Vital Signs (Past 12 Hours) Vital Signs Temp Pulse Pulse Resp BP BP Pulse Ox 10/18/23 07:54 36.9 C 69 18 130/64 95 10/18/23 03:20 36.4 C L 63 20 154/77 H 97 10/18/23 01:25 72 165/71 H 10/18/23 00:49 82 185/75 H 10/18/23 00:44 82 18 185/75 H 98 10/18/23 00:30 65 10/17/23 23:23 10/17/23 23:14 65 10/17/23 23:00 63 20 159/72 H 95 Pulse Ox O2 Del Method O2 Del Method 10/18/23 07:54 Room Air 10/18/23 03:20 Room Air 10/18/23 01:25 10/18/23 00:49 10/18/23 00:44 Room Air 10/18/23 00:30 10/17/23 23:23 95 Room Air 10/17/23 23:14 10/17/23 23:00 Laboratory Results Short CBC 10/17/23 10/18/23 Range/Units 11:11 06:37 WBC 9.28 8.55 (4.8-10.8) K/ul Hgb 13.5 12.7 (12.0-16.0) g/dl Hct 38.3 35.8 L (37.0-47.0) % Plt Count 336 320 (130-400) K/uL BMP 10/17/23 10/18/23 11:11 06:37 Sodium 133 L 134 L Potassium 4.3 3.9 Chloride 98 101 Carbon Dioxide 29 26 BUN 13 10 Creatinine 0.76 0.55 L Glucose 91 96 Calcium 9.8 9.1 Liver Function 10/17/23 Range/Units 11:11 Total Bilirubin 0.4 (0.2-1.0) mg/dl AST 12 L (13-39) U/L ALT 11 (7-52) U/L Alkaline Phosphatase 59 (34-104) U/L Albumin 4.2 (3.4-5.0) gm/dl Diagnostic Findings Laboratory Results WBC 8.55 K/ul (4.8-10.8) 10/18/23 06:37 RBC 3.93 M/uL (4.20-5.40) L 10/18/23 06:37 Hgb 12.7 g/dl (12.0-16.0) 10/18/23 06:37 Hct 35.8 % (37.0-47.0) L 10/18/23 06:37 MCV 91.1 fL (80.0-100.0) 10/18/23 06:37 MCH 32.3 pg (25.0-34.0) 10/18/23 06:37 MCHC 35.5 g/dL (32.0-36.0) 10/18/23 06:37 RDW Std Deviation 42.9 fL (36.4-46.3) 10/18/23 06:37 RDW Coeff of Renaldo 12.9 % (11.5-14.5) 10/18/23 06:37 Plt Count 320 K/uL (130-400) 10/18/23 06:37 MPV 9.7 fL (9.4-12.4) 10/18/23 06:37 Immature Gran % (Auto) 0.2 % 10/18/23 06:37 Neut % (Auto) 47.9 % 10/18/23 06:37 Lymph % (Auto) 32.7 % 10/18/23 06:37 [place] % (Auto) 9.0 % 10/18/23 06:37 Eos % (Auto) 9.0 % 10/18/23 06:37 Baso % (Auto) 1.2 % 10/18/23 06:37 Neut # (Auto) 4.09 K/uL (1.40-6.50) 10/18/23 06:37 Lymph # (Auto) 2.80 K/uL (1.20-3.40) 10/18/23 06:37 [place] # (Auto) 0.77 K/uL (0.11-0.59) H 10/18/23 06:37 Eos # (Auto) 0.77 K/uL (0.00-0.50) H 10/18/23 06:37 Baso # (Auto) 0.10 K/uL (0.00-0.20) 10/18/23 06:37 Immature Gran # (Auto) 0.02 K/uL (0.01-0.20) 10/18/23 06:37 PT 10.4 Seconds (9.0-12.0) 10/17/23 11:11 INR 0.9 (0.9-1.1) 10/17/23 11:11 APTT 24 Seconds (21-31) 10/17/23 11:11 PTT Ratio 0.9 10/17/23 11:11 Sodium 134 mmol/L (136-145) L 10/18/23 06:37 Potassium 3.9 mmol/L (3.5-5.1) 10/18/23 06:37 Chloride 101 mmol/L (98-107) 10/18/23 06:37 Carbon Dioxide 26 mmol/L (21-32) 10/18/23 06:37 Anion Gap 7 (3-11) 10/18/23 06:37 BUN 10 mg/dl (6-23) 10/18/23 06:37 Creatinine 0.55 mg/dl (0.6-1.2) L 10/18/23 06:37 Est Cr Clr Drug Dosing 88.1 ml/min 10/18/23 06:37 Est GFR ( Amer) 101.2 ml/min 10/18/23 06:37 Est GFR (Non-Af Amer) 87.4 ml/min 10/18/23 06:37 BUN/Creatinine Ratio 18.2 (10-20) 10/18/23 06:37 Glucose 96 mg/dl (70-99(Fasting)) 10/18/23 06:37 Estimat Average Glucose 111 mg/dl 10/18/23 06:37 Hemoglobin A1c 5.5 % (4.5-5.6) 10/18/23 06:37 Calcium 9.1 mg/dl (8.6-10.3) 10/18/23 06:37 Total Bilirubin 0.4 mg/dl (0.2-1.0) 10/17/23 11:11 AST 12 U/L (13-39) L 10/17/23 11:11 ALT 11 U/L (7-52) 10/17/23 11:11 Alkaline Phosphatase 59 U/L (34-104) 10/17/23 11:11 Total Protein 6.4 gm/dl (6.0-8.3) 10/17/23 11:11 Albumin 4.2 gm/dl (3.4-5.0) 10/17/23 11:11 Globulin 2.2 gm/dl (2.5-4.0) L 10/17/23 11:11 Albumin/Globulin Ratio 1.9 (0.9-2) 10/17/23 11:11 Triglycerides 75 mg/dl (0-150) 10/18/23 06:37 Cholesterol 157 mg/dl (0-200) 10/18/23 06:37 LDL Cholesterol, Calc 65 mg/dl 10/18/23 06:37 VLDL Cholesterol, Calc 15 mg/dl (0-30) 10/18/23 06:37 HDL Cholesterol 77 mg/dl 10/18/23 06:37 Cholesterol/HDL Ratio 2.0 (0-5) 10/18/23 06:37 Impressions Chest X-Ray 10/17/23 10:38 XR chest 1V portable HISTORY: leg weakness COMPARISON: Chest 09/19/2018. FINDINGS: The lungs are clear. Cardiac silhouette is top normal in size. No pleural effusions. No pneumothorax. IMPRESSION: No acute process. ACT 112: Negative or not required by law. Electronically signed by: Shade Gibbs M.D. 10/17/2023 12:[address] 10/17/23 12:[address] DOSE: HISTORY: leg weakness/numbness TECHNIQUE: Multiaxial CT images of the head were performed without the use of intravenous contrast. Automated exposure control was utilized for this study. A dose lowering technique was utilized adhering to the principles of ALARA. Comparison: None. Findings: The paranasal sinuses and mastoid air cells are clear. The calvarium and skull base are intact. There is no mass, hematoma, midline shift, acute infarct. White matter hypodensity is nonspecific but suggestive of microvascular ischemic change. The ventricles and sulci demonstrate mild age-related involutional changes. Impression: No acute intracranial abnormality. Atrophy and microvascular ischemic changes. ACT 112: Negative or not required by law. Electronically signed by: Shade Gibbs M.D. 10/17/2023 12:[address] 10/17/23 12:11 CT SCAN OF THE LUMBAR SPINE WITHOUT IV CONTRAST CLINICAL HISTORY: Lower extremity weakness and numbness. COMPARISON STUDY: No priors. TECHNIQUE: CT scan of the lumbar spine was performed from the lower thoracic spine to the sacrum. Images are reviewed in the axial, sagittal, and coronal planes. IV contrast was not administered for this examination. A dose lowering technique was utilized adhering to the principles of ALARA. FINDINGS: The skeletal structures are osteopenic. There is no evidence of fracture or malalignment involving the lumbar spine. Vertebral body height and alignment are maintained. Anterior and lateral marginal osteophytes are seen throughout. The transverse and spinous processes appear intact. There is no spondylolysis. No lytic or blastic lesion is seen. There is [id number] disc space narrowing at all lumbar levels, greatest at L4-L5. There is significant endplate sclerosis at L3-L4, L4-L5, and L5-S1. Posterior disc osteophyte complexes are seen at all lumbar levels. There is mild to moderate central canal stenosis at L4-L5. Mild central canal stenosis is seen at L5-S1. There is a left lateral disc extrusion at L4-L5 which contributes to subarticular stenosis and impinges on the exiting left L4 nerve root. Large lateral disc bulges are seen bilaterally at L5-S1, left greater than right. This may impinge on the exiting left L5 nerve root. Facet arthropathy is noted in the lower lumbar region. The visualized sacrum and bony pelvis appear intact. The paraspinous soft tissues are within normal limits. There is advanced atherosclerotic calcification of the abdominal aorta which is normal in caliber. No retroperitoneal lymphadenopathy is identified. IMPRESSION: 1. No acute bony abnormality is seen involving the lumbar spine. 2. Spondylotic change as above. ACT 112: Negative or not required by law. Dictated: 10/17/2023 1:16 PM Transcribed: 10/17/2023 1:30 PM [place] [id number] [facility] [id number] Electronically signed by: Vitaliy Rai M.D. 10/17/2023 1:33 PM Head CTA 10/17/23 12:12 HEAD & NECK CTA HISTORY: Right lower extremity weakness/numbness TECHNIQUE: Multiaxial CT images of the head were performed following the intravenous administration of contrast to evaluate the major cerebral vessels. Multiaxial CT images of the neck were also performed following the intravenous administration of contrast to evaluate the major cervical vessels. 3D/MIP images were also obtained. Sagittal and coronal reformats were reviewed. A dose lowering technique was utilized adhering to the principles of ALARA. COMPARISON: None. FINDINGS: There is no mass, hematoma, midline shift, or acute infarct. Visualized intracranial internal carotid arteries, distal right vertebral artery, and basilar artery are widely patent. There is no significant stenosis, occlusion, or aneurysm seen within the bilateral ACAs, MCAs, or office administrative assistant. Focal mild to moderate stenosis within the distal left vertebral artery on image 30. There is a persistent right posterior circulation. Mild calcified plaque within the bilateral carotid siphons. There is a hypoplastic right A2 segment which is likely developmental.. The major dural venous sinuses are patent. The aortic arch and proximal great vessels are widely patent. There is no significant stenosis, occlusion, or dissection identified within the bilateral common carotid, internal carotid, or vertebral arteries. Scattered peripheral micronodules seen within the upper lobes measuring up to 3 mm. These are indeterminate but favor mild inflammatory/infectious change. A 1 cm left thyroid nodule. This does not meet CT criteria for follow-up. Mild calcified plaque within the bilateral carotid bifurcations. IMPRESSION: 1. No significant stenosis, occlusion, or aneurysm within the [place] of [place]. 2. No significant stenosis, occlusion, or dissection identified within the carotid or cervical vertebral arteries. 3. 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 ACT 112: Negative or not required by law. Electronically signed by: Shade Gibbs M.D. 10/17/2023 12:56 PM Neck CTA 10/17/23 12:12 HEAD & NECK CTA HISTORY: Right lower extremity weakness/numbness TECHNIQUE: Multiaxial CT images of the head were performed following the intravenous administration of contrast to evaluate the major cerebral vessels. Multiaxial CT images of the neck were also performed following the intravenous administration of contrast to evaluate the major cervical vessels. 3D/MIP images were also obtained. Sagittal and coronal reformats were reviewed. A dose lowering technique was utilized adhering to the principles of ALARA. COMPARISON: None. FINDINGS: There is no mass, hematoma, midline shift, or acute infarct. Visualized in tracranial internal carotid arteries, distal right vertebral artery, and basilar artery are widely patent. There is no significant stenosis, occlusion, or aneurysm seen within the bilateral ACAs, MCAs, or office administrative assistant. Focal mild to moderate stenosis within the distal left vertebral artery on image 30. There is a persistent right posterior circulation. Mild calcified plaque within the bilateral carotid siphons. There is a hypoplastic right A2 segment which is likely developmental.. The major dural venous sinuses are patent. The aortic arch and proximal great vessels are widely patent. There is no significant stenosis, occlusion, or dissection identified within the bilateral common carotid, internal carotid, or vertebral arteries. Scattered peripheral micronodules seen within the upper lobes measuring up to 3 mm. These are indeterminate but favor mild inflammatory/infectious change. A 1 cm left thyroid nodule. This does not meet CT criteria for follow-up. Mild calcified plaque within the bilateral carotid bifurcations. IMPRESSION: 1. No significant stenosis, occlusion, or aneurysm within the apache of [place]. 2. No significant stenosis, occlusion, or dissection identified within the carotid or cervical vertebral arteries. 3. 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 ACT 112: Negative or not required by law. Electronically signed by: Shade Gibbs M.D. 10/17/2023 12:56 PM Brain MRI 10/17/23 15:35 Brain MRI WITHOUT CONTRAST HISTORY: right leg weakness TECHNIQUE: Multiplanar multisequence MRI of the brain was performed without the use of contrast. COMPARISON STUDY: Head CT 10/17/2023. FINDINGS: There is no mass, hematoma, midline shift, or acute infarct. The paranasal sinuses are clear. The mastoid air cells are clear. The ventricles and sulci demonstrate moderate age-related involutional changes. Scattered foci of T2 hyperintensity seen within the periventricular and subcortical white matter are nonspecific but suggestive of moderate microvascular ischemic changes. The major vascular flow voids at the skull base are well-maintained. Prior bilateral lens replacement. IMPRESSION: No acute intracranial abnormality. Scattered foci of T2 hyperintensity seen within the periventricular and subcortical white matter are nonspecific but favor microvascular ischemic change. ACT 112: Negative or not required by law. Electronically signed by: Shade Gibbs M.D. 10/17/2023 7:56 PM Lumbar Spine MRI 10/17/23 15:35 LUMBAR SPINE MRI HISTORY: right leg weakness TECHNIQUE: Multiplanar multisequence MRI of the lumbar spine was performed without the use of contrast. COMPARISON: None. FINDINGS: For the purpose of the report the L5-S1 disc space will be located on axial image 27 of 30. No fracture or subluxation within the lumbar spine. There is mild disc space narrowing at L2-L3, L3-L4, and L5-S1. There is moderate disc space narrowing at L4-L5. Lyih-xj-[id number] facet degenerative changes within the lumbar spine most pronounced at the L4-L5 level. Mild paravertebral edema at the L5-S1 level. There is mild endplate edema at L3-L4, L4-5, and L5-S1. There is associated T1 hypointense signal at the inferior endplate of L5. These findings are most likely secondary to the long-standing degenerative change. An early discitis/osteomyelitis at L5-S1 is considered less likely but not entirely excluded. No epidural fluid collections identified. The conus terminates at the T12-L1 disc space level. L1-L2: Small broad-based posterior disc bulge without significant central canal or neural foraminal narrowing. L2-L3: Small broad-based posterior disc bulge with ligamentum and facet hypertrophy resulting in mild central canal narrowing. No significant neural foraminal narrowing. L3-L4: Small broad-based posterior disc bulge with ligamentum and facet hypertrophy resulting in mild central canal and mild bilateral neural foraminal narrowing. L4-L5: Broad-based posterior disc bulge with ligamentum and facet hypertrophy resulting in moderate to severe central canal narrowing with an AP diameter of 6.5 mm. There is also mild to moderate bilateral neural foraminal narrowing. There is severe narrowing of the lateral recesses at this level due to the disc bulge and facet hypertrophy. L5-S1: Broad-based posterior disc bulge with mild ligamentum and facet hypertrophy. This results in mild central canal and moderate bilateral neural foraminal narrowing. There is severe narrowing of the left lateral recess. IMPRESSION: 1. No fracture or subluxation within the lumbar spine. 2. Multilevel lumbar spondylosis as described above most pronounced at the L4-L5 level which demonstrates moderate to severe central canal narrowing. 3. Mild paravertebral edema at the L5-S1 level. There is mild endplate edema at L3-L4, L4-5, and L5-S1. There is associated T1 hypointense signal at the inferior endplate of L5. These findings are most likely secondary to the long- standing degenerative change. An early discitis/osteomyelitis at L5-S1 is considered less likely but not entirely excluded. ACT 112: Negative or not required by law. Electronically signed by: Shade Gibbs M.D. 10/17/2023 7:50 PM Medications Administered Current Inpatient Medications Acetaminophen (Acetaminophen 325 Mg Tab) 650 mg PO Q4H PRN PRN Reason: Pain or Fever Stop: 11/16/23 19:25 Atenolol (Atenolol 50 Mg Tablet) 50 mg PO QAM [facility] Stop: 11/17/23 08:59 Last Admin: 10/18/23 08:37 Dose: 50 mg Labetalol HCl (Labetalol Hcl Iv 5 Mg/Ml 20ml) 10 mg IV Q4H PRN PRN Reason: Hypertension Stop: 11/16/23 21:56 Last Admin: 10/18/23 00:49 Dose: 10 mg Miscellaneous Information (Pharmacist Discharge Med Rec Consult) 1 each N/A UD PRN PRN Reason: Consult Stop: 11/16/23 19:25 Montelukast Sodium (Montelukast Sodium 10 Mg Tablet) 10 mg PO QPM [facility] Stop: 11/16/23 20:59 Last Admin: 10/17/23 22:09 Dose: 10 mg Triamterene/Hydrochlorothiazide (Triamterene/Hctz 37.5/25mg Cap) 1 cap PO QAM [facility] Stop: 11/17/23 08:59 Last Admin: 10/18/23 08:37 Dose: 1 cap Umeclidinium/Vilanterol (Umeclidinium/Vilanterol 62.5/25mcg 7 Puffs/Inhaler) 1 puffs INH [facility]AM [facility] Stop: 11/17/23 08:59 Last Admin: 10/18/23 08:36 Dose: 1 puffs Zolpidem Tartrate (Zolpidem Tartrate 5 Mg Tab) 5 mg PO HS PRN PRN Reason: Sleep Stop: 11/16/23 23:09 Last Admin: 10/18/23 00:54 Dose: 5 mg
--- NOTE | 2023-10-18 11:10 | Hospitalist Progress Note ---
Date of Service October 18, 2023 Assessment & Plan (1) Right leg weakness: Plan: Lumbar spinal stenosis. Patient presenting from home with reports of right leg weakness, numbness. Over the past 2 weeks, patient reports numbness and tingling going down the back s of both of her legs and also right hip pain while walking up an incline. Today while driving, patient had an episode of right leg weakness and numbness that lasted for about 10 minutes and self resolved. In the ED, head CT unremarkable, head/neck CTA shows Mild to moderate focal stenosis within the distal left intracranial vertebral artery. Suspect symptoms are due to lumbar radiculopathy however will observe and obtain brain MRI MRI of the lumbar spine did not show age-appropriate multilevel lumbar degenerative changes and impressive stenosis noted mostly at L4-L5 distribution Was seen by spine surgery in the hospital and advised to have outpatient appointment within a few weeks for further evaluation of her symptoms and stenosis She denies any symptoms this morning and examination remained unremarkable She will be discharged home this afternoon Doubt any stroke and/or TIA MRI of the brain has been unremarkable-scattered foci of T2 hypersensitivity seen within the periventricular and subcortical white matter are nonspecific but favor microvascular ischemic changes She denies any neurological symptoms suggestive of TIA and stroke He has been ruled out for any TIA and/or stroke She has been ambulating without any difficulties (2) Hypertension: Plan: BP elevated, likely situational Will monitor for now until brain MRI results Continue home dose atenolol and triamterene/HCTZ Blood pressure remains stable (3) History of tobacco use: Plan: Started Chantix about 2 weeks ago and has been tobacco free (4) Asthma-COPD overlap syndrome: Plan: Chronic, stable, no signs of acute exacerbation Continue home inhalers Minimal wheezing on lung examination DVT PROPHYLAXIS SCDs for now She will be discharged home this afternoon Admission and Anticipated Discharge Date Admission Date: October 17, 2023 Subjective 10/18/2023 The patient was seen and examined in telemetry unit in presence of the daughter She was admitted with right leg numbness with history of intermittent bilateral leg numbness and weakness Denies any other symptoms associated with it specially no problem with urine or bowel habit Condition happened to be worse with right leg weakness while driving Following rest for a few minutes the condition resolved Has been having no symptoms this morning and wants to go home Review of Systems Review of Systems: All systems reviewed and are unremarkable except as noted below Physical Exam Physical Exam: Lying in bed comfortably Constitutional: well developed, well nourished and average body habitus; not ill appearing Eyes: PERRL, conjunctivae normal, anicteric sclerae ENMT: external ear and nose normal, oropharynx normal Neck: trachea midline, no thyromegaly Respiratory: no respiratory distress Auscultation: lungs clear to auscultation bilaterally Cardiovascular: Rate/Rhythm: regular rate and regular rhythm; not tachycardic Heart Sounds: normal S1 and normal S2; no murmur Extremities: no edema Gastrointestinal (Abdomen): Inspection/Auscultation: normal bowel sounds; abdomen not distended Percussion/Palpation: abdomen soft; abdomen nontender Musculoskeletal: No acute arthritis in any of the joint Neurologic: normal touch/pain/proprioception and moves all extremities; no focal motor deficits Elevating the legs did not produce any back pain and or radiation of pain on either side Psychiatric: A+Ox3, euthymic affect Lymphatic: no cervical or axillary lymphadenopathy Results & Data Results & Data Vital Signs (Past 12 Hours) Vital Signs Temp Pulse Pulse Resp BP BP Pulse Ox 10/18/23 07:54 36.9 C 69 18 130/64 95 10/18/23 03:20 36.4 C L 63 20 154/77 H 97 10/18/23 01:25 72 165/71 H 10/18/23 00:49 82 185/75 H 10/18/23 00:44 82 18 185/75 H 98 10/18/23 00:30 65 10/17/23 23:23 10/17/23 23:14 65 10/17/23 23:00 63 20 159/72 H 95 Pulse Ox O2 Del Method O2 Del Method 10/18/23 07:54 Room Air 10/18/23 03:20 Room Air 10/18/23 01:25 10/18/23 00:49 10/18/23 00:44 Room Air 10/18/23 00:30 10/17/23 23:23 95 Room Air 10/17/23 23:14 10/17/23 23:00 Laboratory Results Short CBC 10/17/23 10/18/23 Range/Units 11:11 06:37 WBC 9.28 8.55 (4.8-10.8) K/ul Hgb 13.5 12.7 (12.0-16.0) g/dl Hct 38.3 35.8 L (37.0-47.0) % Plt Count 336 320 (130-400) K/uL BMP 10/17/23 10/18/23 11:11 06:37 Sodium 133 L 134 L Potassium 4.3 3.9 Chloride 98 101 Carbon Dioxide 29 26 BUN 13 10 Creatinine 0.76 0.55 L Glucose 91 96 Calcium 9.8 9.1 Liver Function 10/17/23 Range/Units 11:11 Total Bilirubin 0.4 (0.2-1.0) mg/dl AST 12 L (13-39) U/L ALT 11 (7-52) U/L Alkaline Phosphatase 59 (34-104) U/L Albumin 4.2 (3.4-5.0) gm/dl Diagnostic Findings Laboratory Results WBC 8.55 K/ul (4.8-10.8) 10/18/23 06:37 RBC 3.93 M/uL (4.20-5.40) L 10/18/23 06:37 Hgb 12.7 g/dl (12.0-16.0) 10/18/23 06:37 Hct 35.8 % (37.0-47.0) L 10/18/23 06:37 MCV 91.1 fL (80.0-100.0) 10/18/23 06:37 MCH 32.3 pg (25.0-34.0) 10/18/23 06:37 MCHC 35.5 g/dL (32.0-36.0) 10/18/23 06:37 RDW Std Deviation 42.9 fL (36.4-46.3) 10/18/23 06:37 RDW Coeff of Renaldo 12.9 % (11.5-14.5) 10/18/23 06:37 Plt Count 320 K/uL (130-400) 10/18/23 06:37 MPV 9.7 fL (9.4-12.4) 10/18/23 06:37 Immature Gran % (Auto) 0.2 % 10/18/23 06:37 Neut % (Auto) 47.9 % 10/18/23 06:37 Lymph % (Auto) 32.7 % 10/18/23 06:37 [place] % (Auto) 9.0 % 10/18/23 06:37 Eos % (Auto) 9.0 % 10/18/23 06:37 Baso % (Auto) 1.2 % 10/18/23 06:37 Neut # (Auto) 4.09 K/uL (1.40-6.50) 10/18/23 06:37 Lymph # (Auto) 2.80 K/uL (1.20-3.40) 10/18/23 06:37 [place] # (Auto) 0.77 K/uL (0.11-0.59) H 10/18/23 06:37 Eos # (Auto) 0.77 K/uL (0.00-0.50) H 10/18/23 06:37 Baso # (Auto) 0.10 K/uL (0.00-0.20) 10/18/23 06:37 Immature Gran # (Auto) 0.02 K/uL (0.01-0.20) 10/18/23 06:37 PT 10.4 Seconds (9.0-12.0) 10/17/23 11:11 INR 0.9 (0.9-1.1) 10/17/23 11:11 APTT 24 Seconds (21-31) 10/17/23 11:11 PTT Ratio 0.9 10/17/23 11:11 Sodium 134 mmol/L (136-145) L 10/18/23 06:37 Potassium 3.9 mmol/L (3.5-5.1) 10/18/23 06:37 Chloride 101 mmol/L (98-107) 10/18/23 06:37 Carbon Dioxide 26 mmol/L (21-32) 10/18/23 06:37 Anion Gap 7 (3-11) 10/18/23 06:37 BUN 10 mg/dl (6-23) 10/18/23 06:37 Creatinine 0.55 mg/dl (0.6-1.2) L 10/18/23 06:37 Est Cr Clr Drug Dosing 88.1 ml/min 10/18/23 06:37 Est GFR ( Amer) 101.2 ml/min 10/18/23 06:37 Est GFR (Non-Af Amer) 87.4 ml/min 10/18/23 06:37 BUN/Creatinine Ratio 18.2 (10-20) 10/18/23 06:37 Glucose 96 mg/dl (70-99(Fasting)) 10/18/23 06:37 Estimat Average Glucose 111 mg/dl 10/18/23 06:37 Hemoglobin A1c 5.5 % (4.5-5.6) 10/18/23 06:37 Calcium 9.1 mg/dl (8.6-10.3) 10/18/23 06:37 Total Bilirubin 0.4 mg/dl (0.2-1.0) 10/17/23 11:11 AST 12 U/L (13-39) L 10/17/23 11:11 ALT 11 U/L (7-52) 10/17/23 11:11 Alkaline Phosphatase 59 U/L (34-104) 10/17/23 11:11 Total Protein 6.4 gm/dl (6.0-8.3) 10/17/23 11:11 Albumin 4.2 gm/dl (3.4-5.0) 10/17/23 11:11 Globulin 2.2 gm/dl (2.5-4.0) L 10/17/23 11:11 Albumin/Globulin Ratio 1.9 (0.9-2) 10/17/23 11:11 Triglycerides 75 mg/dl (0-150) 10/18/23 06:37 Cholesterol 157 mg/dl (0-200) 10/18/23 06:37 LDL Cholesterol, Calc 65 mg/dl 10/18/23 06:37 VLDL Cholesterol, Calc 15 mg/dl (0-30) 10/18/23 06:37 HDL Cholesterol 77 mg/dl 10/18/23 06:37 Cholesterol/HDL Ratio 2.0 (0-5) 10/18/23 06:37 Impressions Chest X-Ray 10/17/23 10:38 XR chest 1V portable HISTORY: leg weakness COMPARISON: Chest 09/19/2018. FINDINGS: The lungs are clear. Cardiac silhouette is top normal in size. No pleural effusions. No pneumothorax. IMPRESSION: No acute process. ACT 112: Negative or not required by law. Electronically signed by: Shade Gibbs M.D. 10/17/2023 12:[address] 10/17/23 12:[address] DOSE: HISTORY: leg weakness/numbness TECHNIQUE: Multiaxial CT images of the head were performed without the use of intravenous contrast. Automated exposure control was utilized for this study. A dose lowering technique was utilized adhering to the principles of ALARA. Comparison: None. Findings: The paranasal sinuses and mastoid air cells are clear. The calvarium and skull base are intact. There is no mass, hematoma, midline shift, acute infarct. White matter hypodensity is nonspecific but suggestive of microvascular ischemic change. The ventricles and sulci demonstrate mild age-related involutional changes. Impression: No acute intracranial abnormality. Atrophy and microvascular ischemic changes. ACT 112: Negative or not required by law. Electronically signed by: Shade Gibbs M.D. 10/17/2023 12:[address] 10/17/23 12:11 CT SCAN OF THE LUMBAR SPINE WITHOUT IV CONTRAST CLINICAL HISTORY: Lower extremity weakness and numbness. COMPARISON STUDY: No priors. TECHNIQUE: CT scan of the lumbar spine was performed from the lower thoracic spine to the sacrum. Images are reviewed in the axial, sagittal, and coronal planes. IV contrast was not administered for this examination. A dose lowering technique was utilized adhering to the principles of ALARA. FINDINGS: The skeletal structures are osteopenic. There is no evidence of fracture or malalignment involving the lumbar spine. Vertebral body height and alignment are maintained. Anterior and lateral marginal osteophytes are seen throughout. The transverse and spinous processes appear intact. There is no spondylolysis. No lytic or blastic lesion is seen. There is [id number] disc space narrowing at all lumbar levels, greatest at L4-L5. There is significant endplate sclerosis at L3-L4, L4-L5, and L5-S1. Posterior disc osteophyte complexes are seen at all lumbar levels. There is mild to moderate central canal stenosis at L4-L5. Mild central canal stenosis is seen at L5-S1. There is a left lateral disc extrusion at L4-L5 which contributes to subarticular stenosis and impinges on the exiting left L4 nerve root. Large lateral disc bulges are seen bilaterally at L5-S1, left greater than right. This may impinge on the exiting left L5 nerve root. Facet arthropathy is noted in the lower lumbar region. The visualized sacrum and bony pelvis appear intact. The paraspinous soft tissues are within normal limits. There is advanced atherosclerotic calcification of the abdominal aorta which is normal in caliber. No retroperitoneal lymphadenopathy is identified. IMPRESSION: 1. No acute bony abnormality is seen involving the lumbar spine. 2. Spondylotic change as above. ACT 112: Negative or not required by law. Dictated: 10/17/2023 1:16 PM Transcribed: 10/17/2023 1:30 PM [place] [id number] ELIEZER_Ariel [id number] Electronically signed by: Vitaliy Rai M.D. 10/17/2023 1:33 PM Head CTA 10/17/23 12:12 HEAD & NECK CTA HISTORY: Right lower extremity weakness/numbness TECHNIQUE: Multiaxial CT images of the head were performed following the intravenous administration of contrast to evaluate the major cerebral vessels. Multiaxial CT images of the neck were also performed following the intravenous administration of contrast to evaluate the major cervical vessels. 3D/MIP images were also obtained. Sagittal and coronal reformats were reviewed. A dose lowering technique was utilized adhering to the principles of ALARA. COMPARISON: None. FINDINGS: There is no mass, hematoma, midline shift, or acute infarct. Visualized in tracranial internal carotid arteries, distal right vertebral artery, and basilar artery are widely patent. There is no significant stenosis, occlusion, or aneurysm seen within the bilateral ACAs, MCAs, or sales operations assistant. Focal mild to moderate stenosis within the distal left vertebral artery on image 30. There is a persistent right posterior circulation. Mild calcified plaque within the bilateral carotid siphons. There is a hypoplastic right A2 segment which is likely developmental.. The major dural venous sinuses are patent. The aortic arch and proximal great vessels are widely patent. There is no significant stenosis, occlusion, or dissection identified within the bilateral common carotid, internal carotid, or vertebral arteries. Scattered peripheral micronodules seen within the upper lobes measuring up to 3 mm. These are indeterminate but favor mild inflammatory/infectious change. A 1 cm left thyroid nodule. This does not meet CT criteria for follow-up. Mild calcified plaque within the bilateral carotid bifurcations. IMPRESSION: 1. No significant stenosis, occlusion, or aneurysm within the [place]. 2. No significant stenosis, occlusion, or dissection identified within the carotid or cervical vertebral arteries. 3. 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 ACT 112: Negative or not required by law. Electronically signed by: Shade Gibbs M.D. 10/17/2023 12:56 PM Neck CTA 10/17/23 12:12 HEAD & NECK CTA HISTORY: Right lower extremity weakness/numbness TECHNIQUE: Multiaxial CT images of the head were performed following the intravenous administration of contrast to evaluate the major cerebral vessels. Multiaxial CT images of the neck were also performed following the intravenous administration of contrast to evaluate the major cervical vessels. 3D/MIP images were also obtained. Sagittal and coronal reformats were reviewed. A dose lowering technique was utilized adhering to the principles of ALARA. COMPARISON: None. FINDINGS: There is no mass, hematoma, midline shift, or acute infarct. Visualized intracranial internal carotid arteries, distal right vertebral artery, and basilar artery are widely patent. There is no significant stenosis, occlusion, or aneurysm seen within the bilateral ACAs, MCAs, or sales operations assistant. Focal mild to moderate stenosis within the distal left vertebral artery on image 30. There is a persistent right posterior circulation. Mild calcified plaque within the bilateral carotid siphons. There is a hypoplastic right A2 segment which is likely developmental.. The major dural venous sinuses are patent. The aortic arch and proximal great vessels are widely patent. There is no significant stenosis, occlusion, or dissection identified within the bilateral common carotid, internal carotid, or vertebral arteries. Scattered peripheral micronodules seen within the upper lobes measuring up to 3 mm. These are indeterminate but favor mild inflammatory/infectious change. A 1 cm left thyroid nodule. This does not meet CT criteria for follow-up. Mild calcified plaque within the bilateral carotid bifurcations. IMPRESSION: 1. No significant stenosis, occlusion, or aneurysm within the [place]. 2. No significant stenosis, occlusion, or dissection identified within the carotid or cervical vertebral arteries. 3. 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 ACT 112: Negative or not required by law. Electronically signed by: Shade Gibbs M.D. 10/17/2023 12:56 PM Brain MRI 10/17/23 15:35 Brain MRI WITHOUT CONTRAST HISTORY: right leg weakness TECHNIQUE: Multiplanar multisequence MRI of the brain was performed without the use of contrast. COMPARISON STUDY: Head CT 10/17/2023. FINDINGS: There is no mass, hematoma, midline shift, or acute infarct. The paranasal sinuses are clear. The mastoid air cells are clear. The ventricles and sulci demonstrate moderate age-related involutional changes. Scattered foci of T2 hyperintensity seen within the periventricular and subcortical white matter are nonspecific but suggestive of moderate microvascular ischemic changes. The major vascular flow voids at the skull base are well-maintained. Prior bilateral lens replacement. IMPRESSION: No acute intracranial abnormality. Scattered foci of T2 hyperintensity seen within the periventricular and subcortical white matter are nonspecific but favor microvascular ischemic change. ACT 112: Negative or not required by law. Electronically signed by: Shade Gibbs M.D. 10/17/2023 7:56 PM Lumbar Spine MRI 10/17/23 15:35 LUMBAR SPINE MRI HISTORY: right leg weakness TECHNIQUE: Multiplanar multisequence MRI of the lumbar spine was performed without the use of contrast. COMPARISON: None. FINDINGS: For the purpose of the report the L5-S1 disc space will be located on axial image of . No fracture or subluxation within the lumbar spine. There is mild disc space narrowing at L2-L3, L3-L4, and L5-S1. There is moderate disc space narrowing at L4-L5. Lukh-[id number]-[id number] facet degenerative changes within the lumbar spine most pronounced at the L4-L5 level. Mild paravertebral edema at the L5-S1 level. There is mild endplate edema at L3-L4, L4-5, and L5-S1. There is associated T1 hypointense signal at the inferior endplate of L5. These findings are most likely secondary to the long-standing degenerative change. An early discitis/osteomyelitis at L5-S1 is considered less likely but not entirely excluded. No epidural fluid collections identified. The conus terminates at the T12-L1 disc space level. L1-L2: Small broad-based posterior disc bulge without significant central canal or neural foraminal narrowing. L2-L3: Small broad-based posterior disc bulge with ligamentum and facet hypertrophy resulting in mild central canal narrowing. No significant neural for aminal narrowing. L3-L4: Small broad-based posterior disc bulge with ligamentum and facet hypertrophy resulting in mild central canal and mild bilateral neural foraminal narrowing. L4-L5: Broad-based posterior disc bulge with ligamentum and facet hypertrophy resulting in moderate to severe central canal narrowing with an AP diameter of 6.5 mm. There is also mild to moderate bilateral neural foraminal narrowing. There is severe narrowing of the lateral recesses at this level due to the disc bulge and facet hypertrophy. L5-S1: Broad-based posterior disc bulge with mild ligamentum and facet hypertrophy. This results in mild central canal and moderate bilateral neural foraminal narrowing. There is severe narrowing of the left lateral recess. IMPRESSION: 1. No fracture or subluxation within the lumbar spine. 2. Multilevel lumbar spondylosis as described above most pronounced at the L4-L5 level which demonstrates moderate to severe central canal narrowing. 3. Mild paravertebral edema at the L5-S1 level. There is mild endplate edema at L3-L4, L4-5, and L5-S1. There is associated T1 hypointense signal at the inferior endplate of L5. These findings are most likely secondary to the long- standing degenerative change. An early discitis/osteomyelitis at L5-S1 is considered less likely but not entirely excluded. ACT 112: Negative or not required by law. Electronically signed by: Shade Gibbs M.D. 10/17/2023 7:50 PM Medications Administered Current Inpatient Medications Acetaminophen (Acetaminophen 325 Mg Tab) 650 mg PO Q4H PRN PRN Reason: Pain or Fever Stop: 11/16/23 19:25 Atenolol (Atenolol 50 Mg Tablet) 50 mg PO QAM [facility] Stop: 11/17/23 08:59 Last Admin: 10/18/23 08:37 Dose: 50 mg Labetalol HCl (Labetalol Hcl Iv 5 Mg/Ml 20ml) 10 mg IV Q4H PRN PRN Reason: Hypertension Stop: 11/16/23 21:56 Last Admin: 10/18/23 00:49 Dose: 10 mg Miscellaneous Information (Pharmacist Discharge Med Rec Consult) 1 each N/A UD PRN PRN Reason: Consult Stop: 11/16/23 19:25 Montelukast Sodium (Montelukast Sodium 10 Mg Tablet) 10 mg PO QPM [facility] Stop: 11/16/23 20:59 Last Admin: 10/17/23 22:09 Dose: 10 mg Triamterene/Hydrochlorothiazide (Triamterene/Hctz 37.5/25mg Cap) 1 cap PO QAM [facility] Stop: 11/17/23 08:59 Last Admin: 10/18/23 08:37 Dose: 1 cap Umeclidinium/Vilanterol (Umeclidinium/Vilanterol 62.5/25mcg 7 Puffs/Inhaler) 1 puffs INH QAM [facility] Stop: 11/17/23 08:59 Last Admin: 10/18/23 08:36 Dose: 1 puffs Zolpidem Tartrate (Zolpidem Tartrate 5 Mg Tab) 5 mg PO HS PRN PRN Reason: Sleep Stop: 11/16/23 23:09 Last Admin: 10/18/23 00:54 Dose: 5 mg
--- NOTE | 2023-10-19 13:03 | Discharge Summary ---
Date of Service October 19, 2023 Admission HPI Per Admitting Provider 82-year-old female with PMH COPD, asthma, HTN, tobacco abuse, and other problems listed below who presents to the ED for evaluation of right leg weakness. History is obtained from the patient and review of outpatient PCP records. Patient reports that over the past couple weeks, she has noted tingling down the back of both of her legs. She also reports right hip pain with walking up an incline. Today while driving, patient reports her entire right leg went numb and she was unable to move it. Patient reports she pulled over to the side of the road and was able to shake her leg. She reports that feeling returned about 10 minutes. Patient denies bowel and bladder dysfunction. Denies specific back pain. No recent injuries. She denies any other unilateral weakness, numbness, tingling. No facial droop or difficulty speaking. Denies headache and blurred vision. No chest pain or shortness of breath. Denies lightheadedness, dizziness, diaphoresis, syncopal events. No abdominal pain, nausea, vomiting, diarrhea. Denies urinary symptoms. In the ED, labs are unremarkable. Patient is mildly hypertensive. Head CT negative for acute findings. Head/neck CTA shows mild to moderate focal stenosis within the distal left intracranial vertebral artery. Admission Exam Per Admitting Provider Constitutional: WD/WN, vitals as above no acute distress Eyes: PERRL, conjunctivae normal, anicteric sclerae ENMT: external ear and nose normal, oropharynx normal Respiratory: normal respiratory effort, lungs clear to auscultation Cardiovascular: Rate/Rhythm: regular rate and regular rhythm Vessels: normal peripheral pulses Extremities: no edema Gastrointestinal (Abdomen): normal bowel sounds, soft, nontender, no hepatosplenomegaly Musculoskeletal: no cyanosis or clubbing, extremities motor strength 5/5 Skin: no rashes, warm and dry Neurologic: PERRL, EOMI, accommodation nl, no face palsy, no dysarthria moves all extremities; no focal motor deficits Psychiatric: A+Ox3, euthymic affect Principal Diagnosis Lumbar spinal stenosis, right leg weakness, hypertension Discharge Exam Lying in bed comfortably Constitutional well developed, well nourished and average body habitus; not ill appearing Eyes PERRL, conjunctivae normal, anicteric sclerae ENMT external ear and nose normal, oropharynx normal Neck trachea midline, no thyromegaly Respiratory no respiratory distress Auscultation: lungs clear to auscultation bilaterally Cardiovascular Rate/Rhythm: regular rate and regular rhythm; not tachycardic Heart Sounds: normal S1 and normal S2; no murmur Extremities: no edema Gastrointestinal (Abdomen) Inspection/Auscultation: normal bowel sounds; abdomen not distended Percussion/Palpation: abdomen soft; abdomen nontender Neurologic normal touch/pain/proprioception and moves all extremities; no focal motor deficits Psychiatric A+Ox3, euthymic affect Lymphatic no cervical or axillary lymphadenopathy Discharge Data Allergies Allergy/AdvReac Type Severity Reaction Status Date / Time Sulfa (Sulfonamide Allergy Unknown Rash Verified 07/17/23 10:02 Antibiotics) sulfamethoxazole Allergy Unknown Rash Verified 07/17/23 10:02 [From Bactrim] trimethoprim [From Bactrim] Allergy Unknown Rash Verified 07/17/23 10:02 Consultations 10/17/23 14:43 Consult Hospitalist Stat 10/18/23 08:00 Consult Orthopedic Spine Surgery Routine Ordered Studies 10/17/23 12:11 CT head/brain wo con Stat CT lumbar spine wo con Stat 10/17/23 12:12 CT angio head w con Stat CT angio neck with con Stat 10/17/23 15:35 MR brain wo con Routine MRI Lumbar Spine [MR lumbar spine wo con] Routine Hospital Course (1) Right leg weakness: Lumbar spinal stenosis. Patient presenting from home with reports of right leg weakness, numbness. Over the past 2 weeks, patient reports numbness and tingling going down the backs of both of her legs and also right hip pain while walking up an incline. Today while driving, patient had an episode of right leg weakness and numbness that lasted for about 10 minutes and self resolved. In the ED, head CT unremarkable, head/neck CTA shows Mild to moderate focal stenosis within the distal left intracranial vertebral artery. Suspect symptoms are due to lumbar radiculopathy however will observe and obtain brain MRI MRI of the lumbar spine did not show age-appropriate multilevel lumbar degenerative changes and impressive stenosis noted mostly at L4-L5 distribution Was seen by spine surgery in the hospital and advised to have outpatient appointment within a few weeks for further evaluation of her symptoms and stenosis She denies any symptoms this morning and examination remained unremarkable She will be discharged home this afternoon Doubt any stroke and/or TIA MRI of the brain has been unremarkable-scattered foci of T2 hypersensitivity seen within the periventricular and subcortical white matter are nonspecific but favor microvascular ischemic changes She denies any neurological symptoms suggestive of TIA and stroke He has been ruled out for any TIA and/or stroke She has been ambulating without any difficulties (2) Hypertension: BP elevated, likely situational Will monitor for now until brain MRI results Continue home dose atenolol and triamterene/HCTZ Blood pressure remains stable (3) History of tobacco use: Started Chantix about 2 weeks ago and has been tobacco free (4) Asthma-COPD overlap syndrome: Chronic, stable, no signs of acute exacerbation Continue home inhalers Minimal wheezing on lung examination DVT PROPHYLAXIS SCDs for now She will be discharged home this afternoon Total Time Total Time Spent Total Time Spent (In Minutes): 35 minutes Discharge Plan Discharge Items Patient Disposition: Home - Self-Care Reason For Visit: RIGHT LEG WEAKNESS Discharge Diagnosis: Lumbar spinal stenosis, right leg weakness, hypertension Condition on Discharge: Good Activity: Resume your previous activity Non-emergency contact: Primary Care Provider Call non-emergency contact if: you have any medication questions and your symptoms worsen Follow-up/Referrals: Everett Barber DO [Surgeon] - (Please call the Orthopedic office for an appointment.) Temitope Smyth PA-C [Primary Care Provider] - (Date & Time 10/25/2023 1:00 PM Provider Temitope Smyth PA-C Department [facility] ) Diet: Heart Healthy Addtl Attending Provider Instructions: Please take precautions to avoid falls No change in your current medication Please keep appointments with the healthcare providers Pending Studies at Discharge: No Stand-Alone Forms: My [facility] [employer], Smoking Cessation Medications and DC Order Prescriptions: Continued montelukast 10 mg tablet 10 mg PO QPM Qty: 90 1RF Anoro Ellipta 62.5-25 mcg/actuation blister with device 1 puffs INH QAM (DME) Aerochamber Mini spacer See Dose Instructions .ROUTE .MEDSUPPLY Qty: 1 0RF Dose Instruction: As directed Rx Instructions: As directed triamterene-hydrochlorothiazid 37.5-25 mg capsule 1 tab PO QAM atenolol 50 mg tablet 50 mg PO QAM varenicline 0.5 mg (11)- 1 mg (42) tablets,dose pack 1 ea PO UD albuterol sulfate 90 mcg/actuation HFA aerosol inhaler 1 puffs INH Q6H PRN (Reason: shortness of breath or wheezing) Rx Instructions: To be used as needed for wheezing and shortness of breath Discharge Orders: Discharge Order (Routine); Ordered 10/18/23 Ordered By: Eulogio Blake Admission Data Admit Date/Time: 10/17/23 15:27 Attending Provider: Eulogio Blake Admit Provider: Zohaib Telles Primary Care Provider: Temitope Smyth Other Providers: Zohaib Telles; Everett Barber Other Interventions: Discharge Summary Assessment (RN) Last Done: 10/18/23 12:18
== END 2023-10-18 12:39 | disposition home or self-care (01) ==
LOC: ED 10:25 → EDINP 10:25 → SUATTDRO 15:27 → EDINP 19:25 → 4W 10-18 00:36